=== PATIENT | male | born 1950 | race Caucasian/White ===

== ENCOUNTER 2020-04-04 10:42 | Outpatient (REF) | payer MEDICARE, OTHER, SELFPAY ==
[2020-04-04 11:47] LABS: MANUAL DIFF FLAG NO
[2020-04-04 12:06] LABS: Basophils Absolute Auto 0.1 X10*3/uL (0.0-0.2); Basophils Percent Auto 0.8 % (0-2); Eosinophils Absolute Auto 0.2 X10*3/uL (0.0-0.4); Eosinophils Percent Auto 1.7 % (0-4); Hematocrit 41.8 % (42-52); Hemoglobin 13.3 g/dl (14.0-18.0); Imm Gran Abs Auto 0.02 X10*3/uL (0.00-0.03); Imm Gran Pct Auto 0.2 % (0.0-0.4); Lymphocytes Absolute Auto 2.1 X10*3/uL (1.2-4.9); Mean Corpuscular HGB Conc 31.8 g/dl (31.0-36.0); Mean Corpuscular Hemoglobin 28.4 pg (27.0-33.0); Mean Corpuscular Volume 89.3 fL (80-98); Mean Platelet Volume 10.6 fL (9.4-12.4); Monocytes Absolute Auto 0.8 X10*3/uL (0.1-1.2); Monocytes Percent Auto 9.5 % (2-11); Neutrophils Absolute Auto 5.5 X10*3/uL (2.0-8.3); Neutrophils Percent Auto 63.8 % (45-73); Platelet Count 316 X10*3/uL (160-400); Red Blood Count 4.68 X10*6/uL (4.60-5.80); Red Cell Distribution Width 14.1 % (11.0-16.0); White Blood Count 8.7 X10*3/uL (4.8-10.8)
[2020-04-04 12:20] LABS: Glucose Urine UA NEG (NEG); Leukocyte Esterase Urine NEG (NEG); Nitrite Urine NEG (NEG); PH 5.5 (5.0-8.0); Urine Blood NEG (NEG); Urine Ketones NEG (NEG); Urine Protein NEG (NEG-TRACE)
[2020-04-04 12:23] LABS: Appearance Urine CLEAR; Color Urine YELLOW
[2020-04-04 12:49] LABS: Alanine Aminotransferase 27 U/L (0-40); Albumin Level 4.2 g/dL (3.5-5.0); Alkaline Phosphatase 100 U/L (39-117); Anion Gap 18 (12-20); Aspartate Amino Transferase 37 U/L (5-37); Bilirubin Total 0.6 mg/dL (0.0-1.0); Blood Urea Nitrogen 21 mg/dL (9-16); Calcium 9.3 mg/dL (8.4-10.2); Carbon Dioxide 24 mmol/L (22-29); Chloride 105 mmol/L (96-108); Cholesterol 176 mg/dL; Estimated Glomerular Filt Rate 38; Glucose Fasting 123 mg/dL (60-99); HDL Cholesterol 49 mg/dL; LDL Cholesterol Calculated 103 mg/dl; Potassium 4.5 mmol/L (3.3-5.1); Sodium 142 mmol/L (135-145); Total Protein 7.2 g/dL (6.5-8.0); Triglycerides 123 mg/dL
[2020-04-04 13:14] LABS: Prostate Specific Antigen Scr 0.92 ng/mL (<0.05-4.0)
[2020-04-04 15:06] LABS: Reflex LDLD? No
== END 2020-04-04 10:43 | disposition home or self-care (01) ==
LOC: HO.LNP 10:42
PROVIDERS: Visit Provider Internal Medicine
DX: Z00.00 Encounter for general adult medical examination without abnormal findings (principal); R97.20 Elevated prostate specific antigen [PSA]; E78.00 Pure hypercholesterolemia, unspecified; I50.20 Unspecified systolic (congestive) heart failure; Z12.5 Encounter for screening for malignant neoplasm of prostate
CPT/HCPCS: 80053; 80061; 81003; 84153; 85025

== ENCOUNTER 2020-07-13 10:48 | Outpatient (REF) | payer MEDICARE, OTHER, SELFPAY ==
[2020-07-13 12:57] LABS: Blood Urea Nitrogen 21 mg/dL (9-16); Estimated Glomerular Filt Rate 42
== END 2020-07-13 10:49 | disposition home or self-care (01) ==
LOC: HO.LNP 10:48
PROVIDERS: Visit Provider Internal Medicine
DX: R79.9 Abnormal finding of blood chemistry, unspecified (principal)
CPT/HCPCS: 82565; 84520

== ENCOUNTER 2020-10-03 10:18 | Outpatient (REF) | payer MEDICARE, OTHER, SELFPAY ==
[2020-10-03 10:21] LABS: MANUAL DIFF FLAG NO
[2020-10-03 10:47] LABS: Basophils Absolute Auto 0.1 X10*3/uL (0.0-0.2); Eosinophils Absolute Auto 0.2 X10*3/uL (0.0-0.4); Eosinophils Percent Auto 2.2 % (0-4); Hematocrit 39.8 % (42-52); Hemoglobin 13.1 g/dl (14.0-18.0); Imm Gran Abs Auto 0.02 X10*3/uL (0.00-0.03); Imm Gran Pct Auto 0.3 % (0.0-0.4); Lymphocytes Absolute Auto 1.5 X10*3/uL (1.2-4.9); Lymphocytes Percent Auto 19.2 % (20-40); Mean Corpuscular HGB Conc 32.9 g/dl (31.0-36.0); Mean Corpuscular Hemoglobin 28.9 pg (27.0-33.0); Mean Corpuscular Volume 87.7 fL (80-98); Mean Platelet Volume 10.9 fL (9.4-12.4); Monocytes Absolute Auto 0.8 X10*3/uL (0.1-1.2); Monocytes Percent Auto 10.7 % (2-11); Neutrophils Absolute Auto 5.2 X10*3/uL (2.0-8.3); Neutrophils Percent Auto 66.6 % (45-73); Platelet Count 257 X10*3/uL (160-400); Red Blood Count 4.54 X10*6/uL (4.60-5.80); Red Cell Distribution Width 13.7 % (11.0-16.0); White Blood Count 7.8 X10*3/uL (4.8-10.8)
[2020-10-03 10:57] LABS: Glucose Urine UA NEG (NEG); Leukocyte Esterase Urine NEG (NEG); Nitrite Urine NEG (NEG); PH 5.5 (5.0-8.0); Urine Blood NEG (NEG); Urine Ketones NEG (NEG); Urine Protein NEG (NEG-TRACE)
[2020-10-03 11:03] LABS: Appearance Urine CLEAR; Color Urine STRAW
[2020-10-03 11:46] LABS: Alanine Aminotransferase 23 U/L (0-40); Albumin Level 4.1 g/dL (3.5-5.0); Alkaline Phosphatase 91 U/L (39-117); Anion Gap 16 (12-20); Aspartate Amino Transferase 38 U/L (5-37); Bilirubin Total 0.6 mg/dL (0.0-1.0); Blood Urea Nitrogen 23 mg/dL (9-16); Calcium 9.5 mg/dL (8.4-10.2); Carbon Dioxide 25 mmol/L (22-29); Chloride 104 mmol/L (96-108); Cholesterol 172 mg/dL; Estimated Glomerular Filt Rate 42; Glucose Fasting 109 mg/dL (60-99); HDL Cholesterol 52 mg/dL; LDL Cholesterol Calculated 101 mg/dl; Potassium 4.4 mmol/L (3.3-5.1); Sodium 141 mmol/L (135-145); Triglycerides 95 mg/dL
[2020-10-03 12:07] LABS: PSA,Total (Free>4and<10) 1.79 ng/mL (0.00-4.00)
[2020-10-03 13:12] LABS: Reflex LDLD? No
== END 2020-10-03 10:19 | disposition home or self-care (01) ==
LOC: HO.LNP 10:18
PROVIDERS: Visit Provider Internal Medicine
DX: Z00.00 Encounter for general adult medical examination without abnormal findings (principal); Z12.5 Encounter for screening for malignant neoplasm of prostate; R79.9 Abnormal finding of blood chemistry, unspecified; E78.00 Pure hypercholesterolemia, unspecified; R97.20 Elevated prostate specific antigen [PSA]
CPT/HCPCS: 80053; 80061; 81003; 84153; 85025

== ENCOUNTER 2021-01-08 10:16 | Outpatient (REF) | payer MEDICARE, OTHER, SELFPAY ==
[2021-01-08 10:55] LABS: Blood Urea Nitrogen 22 mg/dL (9-16); Estimated Glomerular Filt Rate 42
== END 2021-01-08 10:17 | disposition home or self-care (01) ==
LOC: HO.LNP 10:16
PROVIDERS: PCP Internal Medicine; Visit Provider Internal Medicine
DX: R79.9 Abnormal finding of blood chemistry, unspecified (principal)
CPT/HCPCS: 82565; 84520

== ENCOUNTER 2021-04-03 10:14 | Outpatient (REF) | payer MEDICARE, OTHER, SELFPAY ==
[2021-04-03 11:05] LABS: Alanine Aminotransferase 13 U/L (0-40); Albumin Level 3.9 g/dL (3.5-5.0); Alkaline Phosphatase 109 U/L (39-117); Aspartate Amino Transferase 29 U/L (5-37); Bilirubin Direct 0.3 mg/dL (0.0-0.5); Bilirubin Total 0.7 mg/dL (0.0-1.0); Cholesterol 176 mg/dL; HDL Cholesterol 48 mg/dL; LDL Cholesterol Calculated 106 mg/dl; Triglycerides 113 mg/dL
[2021-04-03 11:08] LABS: Reflex LDLD? No
== END 2021-04-03 10:15 | disposition home or self-care (01) ==
LOC: HO.LNP 10:14
PROVIDERS: PCP Internal Medicine; Visit Provider Internal Medicine
DX: E78.00 Pure hypercholesterolemia, unspecified (principal)
CPT/HCPCS: 80061; 80076

== ENCOUNTER 2021-10-05 10:37 | Outpatient (REF) | payer MEDICARE, OTHER, SELFPAY ==
[2021-10-05 10:43] LABS: MANUAL DIFF FLAG NO
[2021-10-05 11:15] LABS: Basophils Absolute Auto 0.1 X10*3/uL (0.0-0.2); Basophils Percent Auto 0.8 % (0-2); Eosinophils Absolute Auto 0.1 X10*3/uL (0.0-0.4); Eosinophils Percent Auto 1.9 % (0-4); Hematocrit 37.8 % (42.0-52.0); Hemoglobin 12.6 g/dl (14.0-18.0); Imm Gran Abs Auto 0.02 X10*3/uL (0.00-0.03); Imm Gran Pct Auto 0.3 % (0.0-0.4); Lymphocytes Absolute Auto 1.5 X10*3/uL (1.2-4.9); Lymphocytes Percent Auto 20.2 % (20-40); Mean Corpuscular HGB Conc 33.3 g/dl (31.0-36.0); Mean Corpuscular Hemoglobin 28.8 pg (27.0-33.0); Mean Corpuscular Volume 86.3 fL (80.0-98.0); Mean Platelet Volume 10.9 fL (9.4-12.4); Monocytes Absolute Auto 0.9 X10*3/uL (0.1-1.2); Monocytes Percent Auto 11.8 % (2-11); Neutrophils Absolute Auto 4.9 x10*3/uL (2.0-8.3); Platelet Count 245 X10*3/uL (160-400); Red Blood Count 4.38 X10*6/uL (4.60-5.80); Red Cell Distribution Width 14.3 % (11.0-16.0); White Blood Count 7.5 X10*3/uL (4.8-10.8)
[2021-10-05 12:06] LABS: Alanine Aminotransferase 15 U/L (0-40); Albumin Level 3.9 g/dL (3.5-5.0); Alkaline Phosphatase 95 U/L (39-117); Anion Gap 18 (12-20); Aspartate Amino Transferase 33 U/L (5-37); Bilirubin Total 0.4 mg/dL (0.0-1.0); Blood Urea Nitrogen 16 mg/dL (9-16); Calcium 9.1 mg/dL (8.4-10.2); Carbon Dioxide 24 mmol/L (22-29); Chloride 105 mmol/L (96-108); Cholesterol 181 mg/dL; Estimated Glomerular Filt Rate 43; Glucose Fasting 111 mg/dL (60-99); HDL Cholesterol 48 mg/dL; LDL Cholesterol Calculated 95 mg/dl; Potassium 4.3 mmol/L (3.3-5.1); Sodium 143 mmol/L (135-145); Total Protein 6.9 g/dL (6.5-8.0); Triglycerides 192 mg/dL
[2021-10-05 12:15] LABS: PSA,Total (Free>4and<10) 0.51 ng/mL (0.00-4.00)
== END 2021-10-05 10:38 | disposition home or self-care (01) ==
LOC: HO.LNP 10:37
PROVIDERS: Visit Provider Internal Medicine
DX: Z00.00 Encounter for general adult medical examination without abnormal findings (principal); Z12.5 Encounter for screening for malignant neoplasm of prostate; I50.20 Unspecified systolic (congestive) heart failure; E78.00 Pure hypercholesterolemia, unspecified; R97.20 Elevated prostate specific antigen [PSA]
CPT/HCPCS: 80053; 80061; 84153; 85025

== ENCOUNTER 2022-04-08 11:17 | Outpatient (REF) | payer MEDICARE, OTHER, SELFPAY ==
[2022-04-08 11:55] LABS: Alanine Aminotransferase 11 U/L (0-40); Albumin Level 3.8 g/dL (3.5-5.0); Alkaline Phosphatase 95 U/L (39-117); Aspartate Amino Transferase 29 U/L (5-37); Bilirubin Direct 0.2 mg/dL (0.0-0.5); Bilirubin Total 0.7 mg/dL (0.0-1.0); Cholesterol 176 mg/dL; HDL Cholesterol 45 mg/dL; LDL Cholesterol Calculated 110 mg/dl; Total Protein 6.7 g/dL (6.5-8.0); Triglycerides 109 mg/dL
[2022-04-08 13:53] LABS: Reflex LDLD? No
== END 2022-04-08 11:18 | disposition home or self-care (01) ==
LOC: HO.LNP 11:17
PROVIDERS: Visit Provider Internal Medicine
DX: E78.00 Pure hypercholesterolemia, unspecified (principal)
CPT/HCPCS: 80061; 80076

== ENCOUNTER 2022-10-15 12:30 | Outpatient (REF) | payer MEDICARE, OTHER, SELFPAY ==
[2022-10-15 12:37] LABS: MANUAL DIFF FLAG NO
[2022-10-15 12:55] LABS: Basophils Absolute Auto 0.1 X10*3/uL (0.0-0.2); Basophils Percent Auto 1.1 % (0-2); Eosinophils Absolute Auto 0.2 X10*3/uL (0.0-0.4); Hematocrit 39.6 % (42.0-52.0); Imm Gran Abs Auto 0.02 X10*3/uL (0.00-0.03); Imm Gran Pct Auto 0.3 % (0.0-0.4); Lymphocytes Absolute Auto 1.5 X10*3/uL (1.2-4.9); Lymphocytes Percent Auto 20.1 % (20-40); Mean Corpuscular HGB Conc 32.8 g/dl (31.0-36.0); Mean Corpuscular Hemoglobin 28.3 pg (27.0-33.0); Mean Corpuscular Volume 86.1 fL (80.0-98.0); Mean Platelet Volume 10.9 fL (9.4-12.4); Monocytes Absolute Auto 0.8 X10*3/uL (0.1-1.2); Monocytes Percent Auto 10.5 % (2-11); Neutrophils Absolute Auto 4.9 x10*3/uL (2.0-8.3); Platelet Count 251 X10*3/uL (160-400); Red Cell Distribution Width 14.3 % (11.0-16.0); White Blood Count 7.4 X10*3/uL (4.8-10.8)
[2022-10-15 13:17] LABS: Appearance Urine Clear; Color Urine Yellow; Glucose Urine UA Negative (Negative); Leukocyte Esterase Urine Negative (Negative); Nitrite Urine Negative (Negative); PH 5.5 (5.0-9.0); Urine Blood Negative (Negative); Urine Ketones Negative (Negative); Urine Protein Negative (Neg-Trace)
[2022-10-15 13:19] LABS: Alanine Aminotransferase 13 U/L (0-40); Albumin Level 3.9 g/dL (3.5-5.0); Alkaline Phosphatase 81 U/L (39-117); Anion Gap 12 (12-20); Aspartate Amino Transferase 29 U/L (5-37); Bilirubin Total 0.6 mg/dL (0.0-1.0); Blood Urea Nitrogen 14 mg/dL (9-16); Calcium 9.6 mg/dL (8.4-10.2); Carbon Dioxide 28 mmol/L (22-29); Chloride 105 mmol/L (96-108); Cholesterol 168 mg/dL (<200); Estimated Glomerular Filt Rate 49; Glucose Fasting 102 mg/dL (60-99); HDL Cholesterol 45 mg/dL (>40); LDL Cholesterol Calculated 102 mg/dL (<100); Potassium 4.2 mmol/L (3.3-5.1); Sodium 141 mmol/L (135-145); Triglycerides 109 mg/dL (<150)
[2022-10-15 13:20] LABS: Bacteria Urine None Seen (None Seen); Hyaline Casts Urine >20 /LPF (0-2); RBC Urine 0-2 /HPF (0-2); Squamous Epithelial Cell Urine 0-2 /HPF (0-2); WBC Urine 0-5 /HPF (0-5)
[2022-10-15 15:25] LABS: PSA,Total (Free>4and<10) 0.45 ng/mL (0.00-4.00)
== END 2022-10-15 12:31 | disposition home or self-care (01) ==
LOC: HO.LNP 12:30
PROVIDERS: Visit Provider Internal Medicine
DX: Z00.00 Encounter for general adult medical examination without abnormal findings (principal); I50.20 Unspecified systolic (congestive) heart failure; E78.00 Pure hypercholesterolemia, unspecified; R97.20 Elevated prostate specific antigen [PSA]; Z12.5 Encounter for screening for malignant neoplasm of prostate
CPT/HCPCS: 80053; 80061; 81001; 84153; 85025

== ENCOUNTER 2023-04-11 14:25 | Outpatient (REF) | payer MEDICARE, SELFPAY ==
[2023-04-11 14:49] LABS: Alanine Aminotransferase 15 U/L (0-40); Albumin Level 4.3 g/dL (3.5-5.0); Alkaline Phosphatase 117 U/L (39-117); Aspartate Amino Transferase 32 U/L (5-37); Bilirubin Direct 0.3 mg/dL (0.0-0.5); Bilirubin Total 0.8 mg/dL (0.0-1.0); Cholesterol 163 mg/dL (<200); HDL Cholesterol 50 mg/dL (>40); LDL Cholesterol Calculated 90 mg/dL (<100); Total Protein 8.2 g/dL (6.5-8.0); Triglycerides 116 mg/dL (<150)
[2023-04-11 16:03] LABS: Reflex LDLD? No
== END 2023-04-11 14:26 | disposition home or self-care (01) ==
LOC: HO.10HDLNP 14:25
PROVIDERS: Visit Provider Internal Medicine
DX: Q25.3 Supravalvular aortic stenosis (principal); I50.20 Unspecified systolic (congestive) heart failure; E78.00 Pure hypercholesterolemia, unspecified
CPT/HCPCS: 80061; 80076

== ENCOUNTER 2023-04-25 12:24 | Outpatient (REF) | payer MEDICARE, SELFPAY ==
[2023-04-25 12:33] LABS: Basophils Absolute Auto 0.1 X10*3/uL (0.0-0.2); Basophils Percent Auto 0.4 % (0-2); Eosinophils Percent Auto 0.2 % (0-4); Hematocrit 41.2 % (42.0-52.0); Hemoglobin 13.5 g/dl (14.0-18.0); Imm Gran Abs Auto 0.05 X10*3/uL (0.00-0.03); Imm Gran Pct Auto 0.4 % (0.0-0.4); Lymphocytes Absolute Auto 0.9 X10*3/uL (1.2-4.9); Lymphocytes Percent Auto 7.3 % (20-40); MANUAL DIFF FLAG SCAN; Mean Corpuscular HGB Conc 32.8 g/dl (31.0-36.0); Mean Corpuscular Hemoglobin 27.2 pg (27.0-33.0); Mean Corpuscular Volume 82.9 fL (80.0-98.0); Mean Platelet Volume 9.8 fL (9.4-12.4); Monocytes Absolute Auto 1.7 X10*3/uL (0.1-1.2); Monocytes Percent Auto 13.8 % (2-11); Neutrophils Absolute Auto 9.6 x10*3/uL (2.0-8.3); Neutrophils Percent Auto 77.9 % (45-73); Platelet Count 342 X10*3/uL (160-400); Red Blood Count 4.97 X10*6/uL (4.60-5.80); Red Cell Distribution Width 15.1 % (11.0-16.0); SCAN SMEAR FLAG 1; White Blood Count 12.3 X10*3/uL (4.8-10.8)
[2023-04-25 12:47] LABS: Alanine Aminotransferase 11 U/L (0-40); Albumin Level 3.7 g/dL (3.5-5.0); Alkaline Phosphatase 99 U/L (39-117); Anion Gap 16 (12-20); Aspartate Amino Transferase 24 U/L (5-37); Bilirubin Total 0.5 mg/dL (0.0-1.0); Blood Urea Nitrogen 21 mg/dL (9-16); Carbon Dioxide 21 mmol/L (22-29); Chloride 101 mmol/L (96-108); Cholesterol 129 mg/dL (<200); Estimated Glomerular Filt Rate 44; Glucose Fasting 110 mg/dL (60-99); HDL Cholesterol 50 mg/dL (>40); LDL Cholesterol Calculated 65 mg/dL (<100); Potassium 4.2 mmol/L (3.3-5.1); Sodium 134 mmol/L (135-145); Total Protein 7.8 g/dL (6.5-8.0); Triglycerides 70 mg/dL (<150)
[2023-04-25 12:53] LABS: SLIDE REVIEW VERIFIED
[2023-04-25 14:04] LABS: Reflex LDLD? No
== END 2023-04-25 12:25 | disposition home or self-care (01) ==
LOC: HO.LNP 12:24
PROVIDERS: Visit Provider Internal Medicine
DX: I50.20 Unspecified systolic (congestive) heart failure (principal); E78.00 Pure hypercholesterolemia, unspecified; Q25.3 Supravalvular aortic stenosis
CPT/HCPCS: 80053; 80061; 85025

== ENCOUNTER 2023-05-20 08:28 | Outpatient (REF) | payer MEDICARE, SELFPAY ==
[2023-05-20 09:38] LABS: B Type Natriuretic Peptide 517 pg/mL (<100)
== END 2023-05-20 08:29 | disposition home or self-care (01) ==
LOC: HO.LAB 08:28
PROVIDERS: PCP Internal Medicine; Visit Provider Nurse Practitioner Acute Care
DX: I50.9 Heart failure, unspecified (principal)
CPT/HCPCS: 36415; 83880

== ENCOUNTER 2023-06-26 11:02 | Outpatient (REF) | payer MEDICARE, SELFPAY ==
[2023-06-26 11:06] LABS: MANUAL DIFF FLAG NO
[2023-06-26 11:14] LABS: Basophils Absolute Auto 0.1 X10*3/uL (0.0-0.2); Basophils Percent Auto 1.3 % (0-2); Eosinophils Absolute Auto 0.3 X10*3/uL (0.0-0.4); Eosinophils Percent Auto 4.4 % (0-4); Hematocrit 41.2 % (42.0-52.0); Hemoglobin 12.8 g/dl (14.0-18.0); Imm Gran Abs Auto 0.03 X10*3/uL (0.00-0.03); Imm Gran Pct Auto 0.4 % (0.0-0.4); Lymphocytes Absolute Auto 1.4 X10*3/uL (1.2-4.9); Mean Corpuscular HGB Conc 31.1 g/dl (31.0-36.0); Mean Corpuscular Hemoglobin 26.3 pg (27.0-33.0); Mean Corpuscular Volume 84.8 fL (80.0-98.0); Mean Platelet Volume 10.5 fL (9.4-12.4); Monocytes Absolute Auto 0.8 X10*3/uL (0.1-1.2); Monocytes Percent Auto 11.3 % (2-11); Neutrophils Absolute Auto 4.5 x10*3/uL (2.0-8.3); Neutrophils Percent Auto 62.6 % (45-73); Platelet Count 226 X10*3/uL (160-400); Red Blood Count 4.86 X10*6/uL (4.60-5.80); Red Cell Distribution Width 17.9 % (11.0-16.0); White Blood Count 7.1 X10*3/uL (4.8-10.8)
== END 2023-06-26 11:03 | disposition home or self-care (01) ==
LOC: HO.LNP 11:02
PROVIDERS: Visit Provider Internal Medicine
DX: D72.821 Monocytosis (symptomatic) (principal)
CPT/HCPCS: 85025

== ENCOUNTER 2023-10-02 08:21 | Outpatient (REF) | payer MEDICARE, SELFPAY ==
[2023-10-02 09:21] LABS: Anion Gap 12 (12-20); Blood Urea Nitrogen 15 mg/dL (9-16); Calcium 9.4 mg/dL (8.4-10.2); Carbon Dioxide 28 mmol/L (22-29); Chloride 107 mmol/L (96-108); Estimated Glomerular Filt Rate 45; Glucose Random 86 mg/dL (60-115); Potassium 4.4 mmol/L (3.3-5.1); Sodium 143 mmol/L (135-145)
[2023-10-02 09:38] LABS: TSH reflex Free T4 0.33 uIU/mL (0.32-4.0)
== END 2023-10-02 08:22 | disposition home or self-care (01) ==
LOC: HO.LAB 08:21
PROVIDERS: PCP Internal Medicine; Visit Provider Internal Medicine
DX: I15.9 Secondary hypertension, unspecified (principal)
CPT/HCPCS: 36415; 80048; 84443

== ENCOUNTER 2023-10-24 10:55 | Outpatient (REF) | payer MEDICARE, SELFPAY ==
[2023-10-24 10:58] LABS: MANUAL DIFF FLAG NO
[2023-10-24 11:12] LABS: Appearance Urine Clear; Color Urine Yellow; Glucose Urine UA >=1000 mg/dL (Negative); Leukocyte Esterase Urine Negative (Negative); Nitrite Urine Negative (Negative); PH 5.5 (5.0-9.0); Specific Gravity - Urine 1.015 (1.005-1.025); UMIC TRIGGER UACC YES; Urine Blood Negative (Negative); Urine Ketones Negative (Negative); Urine Protein Negative (Neg-Trace)
[2023-10-24 11:19] LABS: Bacteria Urine None Seen (None Seen); Hyaline Casts Urine 0-2 /LPF (0-2); RBC Urine 0-2 /HPF (0-2); Squamous Epithelial Cell Urine 0-2 /HPF (0-2); WBC Urine 0-5 /HPF (0-5)
[2023-10-24 11:36] LABS: Basophils Absolute Auto 0.1 X10*3/uL (0.0-0.2); Basophils Percent Auto 1.1 % (0-2); Eosinophils Absolute Auto 0.1 X10*3/uL (0.0-0.4); Hematocrit 42.3 % (42.0-52.0); Hemoglobin 13.7 g/dl (14.0-18.0); Imm Gran Abs Auto 0.01 X10*3/uL (0.00-0.03); Imm Gran Pct Auto 0.2 % (0.0-0.4); Lymphocytes Absolute Auto 1.3 X10*3/uL (1.2-4.9); Mean Corpuscular HGB Conc 32.4 g/dl (31.0-36.0); Mean Corpuscular Hemoglobin 28.1 pg (27.0-33.0); Mean Corpuscular Volume 86.9 fL (80.0-98.0); Mean Platelet Volume 10.5 fL (9.4-12.4); Monocytes Absolute Auto 0.6 X10*3/uL (0.1-1.2); Neutrophils Absolute Auto 3.3 x10*3/uL (2.0-8.3); Neutrophils Percent Auto 61.7 % (45-73); Platelet Count 193 X10*3/uL (160-400); Red Blood Count 4.87 X10*6/uL (4.60-5.80); Red Cell Distribution Width 15.9 % (11.0-16.0); White Blood Count 5.4 X10*3/uL (4.8-10.8)
[2023-10-24 11:46] LABS: Alanine Aminotransferase 9 U/L (0-40); Albumin Level 3.9 g/dL (3.5-5.0); Alkaline Phosphatase 75 U/L (39-117); Anion Gap 13 (12-20); Aspartate Amino Transferase 24 U/L (5-37); Bilirubin Total 0.5 mg/dL (0.0-1.0); Blood Urea Nitrogen 18 mg/dL (9-16); Calcium 9.3 mg/dL (8.4-10.2); Carbon Dioxide 26 mmol/L (22-29); Chloride 107 mmol/L (96-108); Cholesterol 166 mg/dL (<200); Estimated Glomerular Filt Rate 41; Glucose Fasting 88 mg/dL (60-99); HDL Cholesterol 60 mg/dL (>40); LDL Cholesterol Calculated 93 mg/dL (<100); Potassium 4.6 mmol/L (3.3-5.1); Sodium 141 mmol/L (135-145); Total Protein 6.7 g/dL (6.5-8.0); Triglycerides 65 mg/dL (<150)
[2023-10-24 11:51] LABS: PSA,Total (Free>4and<10) 0.21 ng/mL (0.00-4.00)
== END 2023-10-24 10:56 | disposition home or self-care (01) ==
LOC: HO.LNP 10:55
PROVIDERS: Visit Provider Internal Medicine
DX: Z00.00 Encounter for general adult medical examination without abnormal findings (principal); I50.20 Unspecified systolic (congestive) heart failure; R97.20 Elevated prostate specific antigen [PSA]; D72.821 Monocytosis (symptomatic); E78.00 Pure hypercholesterolemia, unspecified; Z12.5 Encounter for screening for malignant neoplasm of prostate
CPT/HCPCS: 80053; 80061; 81001; 84153; 85025

== ENCOUNTER 2023-11-10 08:20 | Outpatient (REF) | payer MEDICARE, SELFPAY ==
[2023-11-10 09:51] LABS: B Type Natriuretic Peptide 751 pg/mL (<100)
[2023-11-10 09:53] LABS: Anion Gap 12 (12-20); Blood Urea Nitrogen 13 mg/dL (9-16); Calcium 9.8 mg/dL (8.4-10.2); Carbon Dioxide 27 mmol/L (22-29); Chloride 109 mmol/L (96-108); Estimated Glomerular Filt Rate 39; Glucose Random 108 mg/dL (60-115); Potassium 4.6 mmol/L (3.3-5.1); Sodium 143 mmol/L (135-145)
[2023-11-10 10:12] LABS: TSH reflex Free T4 0.32 uIU/mL (0.32-4.0)
== END 2023-11-10 08:21 | disposition home or self-care (01) ==
LOC: HO.LAB 08:20
PROVIDERS: PCP Internal Medicine; Visit Provider Internal Medicine
DX: I51.9 Heart disease, unspecified (principal)
CPT/HCPCS: 36415; 80048; 83880; 84443

== ENCOUNTER 2023-12-05 08:20 | Outpatient (REF) | payer MEDICARE, SELFPAY ==
[2023-12-05 09:37] LABS: Free T4 (Free Thyroxine) 1.21 ng/dL (0.71-1.85)
== END 2023-12-05 08:21 | disposition home or self-care (01) ==
LOC: HO.LAB 08:20
PROVIDERS: PCP Internal Medicine; Visit Provider Nurse Practitioner Acute Care
DX: I50.9 Heart failure, unspecified (principal)
CPT/HCPCS: 36415; 84439

== ENCOUNTER 2024-04-23 10:47 | Outpatient (REF) | payer MEDICARE, SELFPAY ==
[2024-04-23 11:35] LABS: Alanine Aminotransferase 12 U/L (0-40); Albumin Level 3.9 g/dL (3.5-5.0); Alkaline Phosphatase 88 U/L (39-117); Aspartate Amino Transferase 32 U/L (5-37); Bilirubin Direct 0.2 mg/dL (0.0-0.5); Bilirubin Total 0.6 mg/dL (0.0-1.0); Cholesterol 155 mg/dL (<200); HDL Cholesterol 62 mg/dL (>40); LDL Cholesterol Calculated 78 mg/dL (<100); Total Protein 7.3 g/dL (6.5-8.0); Triglycerides 79 mg/dL (<150)
[2024-04-23 11:44] LABS: Reflex LDLD? No
--- OUTSIDE RECORDS SUMMARY | 2024-04-23 12:23 | XMS_ITS ---
Author Organization Deandre Bowden MD Address [address] [place] [phone] Care Team Providers Care [employer] Driver Name Role Phone Deandre Bowden Primary Care Provider [phone] Allergies No Known Allergies REASON FOR VISIT [...] Problem Status W/U Status Risk Notes Problem [id number] Permanent atrial fibrillation (I48.21) Active confirmed Vital Signs Blood pressure systolic 112 mm Hg 10/31/19 Blood pressure diastolic 64 mm Hg 024 Height 68 in 10/31/2023 Weight 198 lbs 10/31/2023 BMI 30.10 kg/m2 10/31/2023 weight is up 7 pounds since 08-07-23 Encounters Encounter Location Date Provider Diagnosis Deandre Bowden MD [address] [facility] [address] [place], [place] [phone] 10/31/2023 Deandre Bowden History of pacemaker Z95.0 [...] Follow Up: 6 Months, Reason: Provider Name:Deandre dumas, 04/30/2024 10:45:00 AM, [address] [facility], [address] [facility], [place], [place], [phone], Provider Name:Deandre camposr, 10/26/2024 07:30:00 AM, [address] [place] [address], [place] [address], [place], [place], [phone], Provider Name:Deandre Chu ier, 11/02/2024 10:30:00 AM, [address] [place] [address], [place] [address], [place], [place], [phone], Progress Notes * Dante MONTANEZ KDOB:[birth year] (73 yo M)Acc No.[id number]:10/31/2023 Progress Notes Patient:?Dante Montanez Provider:?Deandre Bowden MD :1950???Age:73 Y???Sex:Male Que e:10/31/2023 Address:[address] [place] [id number] Subjective: * Chief Complaints: * ???ANNUAL EXAM * HPI: ???Depression Screening:?PHQ-9?Little interest or pleasure in doing things?Not at all,?Feeling down, depressed, or hopeless?Not at all,?Trouble falling or staying asleep, or sleeping too much?Not at all,?Feeling tired or having little energy?Not at all,?Poor appetite or overeating?Not at all,?Feeling bad about yourself or that you are a failure, or have let yourself or your family down?Not at all,?Trouble concentrating on things, such as reading the newspaper or watching television?Not at all,?Moving or speaking so slowly that other people could have noticed; or the opposite, being so fidgety or restless that you have been moving around a lot more than usual?Not at all,?Thoughts that you would be better off or of hurting yourself in some way?Not at all,?Total Score?0.?Interpretation and Intervention?Depression Screening Findings?Negative,?Follow-Up for Depression?: review of PHQ-9 found negative result, no follow-up needed.?Communication Needs:?Communication Needs?Does the patient have a hearing impairment?No,?Does the patient have a vision impairment??Yes,?If yes, what is the vision impairment??Glasses,?Does the patient have a cognition impairment??No.?Fall Risk:?History?Have you had any falls with injury in the past year??No,?Have you had two or more falls in the past year??No.?SDOH Questions:?SDOH Questions?In the past year have you been worried about losing housing??No,?In the past year have you or any family members you live with been unable to get any of the following when it was really needed? Check all that apply:?None.?Symptom(s):? patient is a 73 yo male here for annual visit with review of recent labs and follow up of chronic issues. * ROS:?General/Constitutional:?Patient denies?fatigue , headache.?Change in appetite?denies.?Chills?denies.?Fever?denies.?Ophthalmologic:?Blurred vision?denies.?Discharge?denies.?Pain?denies.?ENT:?Patient denies?decreased sense of smell , any loss of taste , sore throat.?Decreased hearing?denies.?Sore throat?denies.?Swollen glands?denies.?Endocrine:?Cold intolerance?denies.?Excessive thirst?denies.?Heat intolerance?denies.?Weight loss?denies.?Respiratory:?Cough?denies.?Shortness of breath at rest?denies.?Shortness of breath with exertion?denies.?Wheezing?denies.?Cardiovascular:?Chest pain at rest?denies.?Chest pain with exertion?denies.?Irregular heartbeat?denies.?Shortness of breath?denies.?Gastrointestinal:?Abdominal pain?denies.?Change in bowel habits?denies.?Diarrhea?denies.?Nausea?denies.?Rectal bleeding?denies.?Vomiting?denies .?Genitourinary:?Blood in urine?denies.?Difficulty urinating?denies.?Frequent urination?denies.?Musculoskeletal:?Patient denies?muscle aches.?Painful joints?denies.?Weakness?denies.?Peripheral Vascular:?Patient denies?red and blue toes.?Skin:?Dry skin?denies.?Itching?denies.?Denies?Mole(s),? changes in moles, new moles or any lesions of concern.?Denies?Photosensitivity.?Rash?denies.?Neurologic:?Dizziness?denies.?Fainting?denies.?Headache?denies.? * Medical History:? * Surgical History:? * Hospitalization/Major Diagno stic Procedure:? * Family History:?Father: dece ased 76 yrs.?Mother: 56 yrs, diagnosed with Cancer.?1 sister(s) - healthy. .? father, pneumonia mother, [place], No pertinent family medical history, Denies mental health/substance abuse family history, Denies mental health/substance abuse family history, Denies mental health/substance abuse family history, Denies mental health/substance abuse family history. * Social History:?Tobacco Use:?Tobacco Use/Smoking?How long has it been since you last smoked??> 10 years,?Additional Findings: Tobacco Non-User?Former smoker, currently using no form of tobacco.?Drugs/Alcohol:?Alcohol Screen?Did you have a drink containing alcohol in the past year??No,?Points?0,?Interpretation?Negative.?Miscellaneous:?Caffeine: yes, frequency:, 1 cup per day. no Children. Community involvements: yes, goes to [employer] not during Covid. Exercise: yes, walking daily 1 mile daily. Housing: renting. Living with: alone. Marital status: single. Occupation: retired. no Sexual abuse. no Travel outside of the [place]. * Medications:?TakingMetoprolo l Succinate ER 100 MG Tablet Extended Release [...] reviewed and reconciled with the patient * Allergies:?N.K.D.A.yes[Aller gies Verified] Objective: * Vitals:?Ht: 68, Wt:198, BMI: 30.10, BP:112/64 weight is up 7 pounds since 08-07-23. * ???Past Orders: ???Lab:Complete Blood Count Auto Diff (Order Date - 10/24/2023) (Collection Date - 10/24/2023) ? Value Reference Range ?White Blood Count 5.4 4. 8-10.8 - X10*3/uL ?Red Blood Count 4.87 4.60 -5.80 - X10*6/uL ?Hemoglobin 13.7 L 14.0-18.0 - g/dl ?Hematocrit 42.3 42.0-52.0 - % ?Mean Corpuscular Volume 86.9 80.0-98.0 - fL ?Mean Corpuscular Hemoglobin 28.1 27.0-33.0 - pg ?Mean Corpuscular HGB Conc 32.4 31.0-36.0 - g/dl ?Red Cell Distribution Width 15.9 11.0-16.0 - % ?Platelet Count 193 160-4 00 - X10*3/uL ?Mean Platelet Volume 10.5 9.4-12.4 - fL ?Neutrophils Percent Auto 61.7 45-73 - % ?Imm Gran Pct Auto 0.2 0. 0-0.4 - % ?Lymphocytes Percent Auto 24.0 20-40 - % ?Monocytes Percent Auto 11.0 2-11 - % ?Eosinophils Percent Auto 2.0 0-4 - % ?Basophils Percent Auto 1.1 0-2 - % ?NRBC Pct Auto 0.0 0.0-0. 2 - /100WBC ?Neutrophils Absolute Auto 3.3 2.0-8.3 - x10*3/uL ?Imm Gran Abs Auto 0.01 0. 00-0.03 - X10*3/uL ?Lymphocytes Absolute Auto 1.3 1.2-4.9 - X10*3/uL ?Monocytes Absolute Auto 0.6 0.1-1.2 - X10*3/uL ?Eosinophils Absolute Auto 0.1 0.0-0.4 - X10*3/uL ?Basophils Absolute Auto 0.1 0.0-0.2 - X10*3/uL ?NRBC Abs Auto 0.000 0.0-0. 012 - X10*3/uL ???Lab:[facility]prehensive [facility]. P nichole Fast (Order Date - 10/24/2023) (Collection Date - 10/24/2023) ? Value Reference Range ?Sodium 141 135-145 - mmo l/L ?Bilirubin Total 0.5 0.0- 1.0 - mg/dL ?Aspartate Amino Transferase 24 5-37 - U/L ?Alanine Aminotransferase 9 0-40 - U/L ?Total Protein 6.7 6.5-8. 0 - g/dL ?Albumin Level 3.9 3.5-5. 0 - g/dL ?Alkaline Phosphatase 75 39-117 - U/L ?Potassium 4.6 3.3-5.1 - mmol/L ?Chloride 107 96-108 - mm ol/L ?Carbon Dioxide 26 22-29 - mmol/L ?Anion Gap 13 12-20 - ?Blood Urea Nitrogen 18 H 9-16 - mg/dL ?Creatinine 1.63 H 0.5-1.4 - mg/dL ?Estimated Glomerular Filt Rate 41 - ?Glucose Fasting 88 60-9 9 - mg/dL ?Calcium 9.3 8.4-10.2 - m g/dL ???Lab:Lipid Panel (Order Da te - 10/24/2023) (Collection Date - 10/24/2023) ? Value Reference Range ?Triglycerides 65 <150 - mg/dL ?Cholesterol 166 <200 - m g/dL ?LDL Cholesterol Calculated 93 <100 - mg/dL ?HDL Cholesterol 60 >40 - mg/dL ???Lab:PSA,Total (Free>4and< 10) (Order Date - 10/24/2023) (Collection Date - 10/24/2023) ? Value Reference Range ?PSA,Total (Free>4and<10) 0.21 0.00-4.00 - ng/mL ???Lab:UA ClnCatch+Micro w/r flx Cult (Order Date - 10/24/2023) (Collection Date - 10/24/2023) ? Value Reference Range ?Color Urine Yellow - ?Appearance Urine Clear - ?PH 5.5 5.0-9.0 - ?Glucose Urine UA >=1000 A Neg ative - mg/dL ?Urine Blood Negative Negative - ?Specific [place] - Urine 1.015 1.005-1.025 - ?Urine Protein Negative Neg-Tr maria guadalupe - mg/dL ?Urine Ketones Negative Negati ve - mg/dL ?Nitrite Urine Negative Negati ve - ?Leukocyte Esterase Urine Negative Negative - ?RBC Urine 0-2 0-2 - /HPF ?WBC Urine 0-5 0-5 - /HPF ?Squamous Epithelial Cell Urine 0-2 0-2 - /HPF ?Bacteria Urine None Seen None Seen - ?Hyaline Casts Urine 0-2 0-2 - /LPF * Examination: ???General Examination: ?GENERAL APPEARANCE:?well developed, well nourished, in no acute distress.?HEAD:?normocephalic, atraumatic.?EYES:?pupils equal, round, reactive to light and accommodation, sclera non-icteric.?EARS:?normal.?ORAL CAVITY:?mucosa moist.?THROAT:?clear.?NECK/THYROID:?neck supple, full range of motion, no cervical lymphadenopathy, no bruits.?SKIN:?warm and dry, no suspicious lesions.?HEART:?regular rate and rhythm, S1, S2 normal, 3/6 OMARI over the entire precordium.?LUNGS:?clear to auscultation bilaterally.?ABDOMEN:?soft, nontender, nondistended, bowel sounds present, normal, no organomegaly , no masses palpable.?RECTAL EXAM:?normal tone, no external hemorrhoids, no masses palpable, prostate normal, stool guaiac negative.?MALE GENITOURINARY:?abnormal with large hernia in scrotum not able to palpate testes.?EXTREMITIES:?no clubbing, cyanosis, or edema.?NEUROLOGIC:?nonfocal, motor strength normal upper and lower extremities, sensory exam intact.? Assessment: * Assessment: 1.?Annual physical exam - Z0 0.00 (Primary)?2.?History of pacemaker - Z95.0?3.?Aortic valve stenosis, unspecified etiology - I35.0?4.?Pure hypercholesterolemia - E78.00?5.?Systolic congestive heart failure, unspecified congestive heart failure chronicity - I50.20?6.?Permanent atrial fibrillation - I48.21?7.?Colon cancer screening - Z12.11?8.?Depression screening - Z13.31? Plan: * Treatment: 2.?History of pacemaker? Notes: doing well, follows with cardiology?? 3.?Aortic valve stenosis, un specified etiology? Notes: at present still refusing surgery?? 4.?Pure hypercholesterolemia ? Notes: well controlled, at goal, will coontinue current regiment?? 5.?Systolic congestive heart failure, unspecified congestive heart failure chronicity? Notes: Stable. Continue current regiment.?? 6.?Permanent atrial fibrilla tion? Notes: seems in sinus at present, will continue current regiment?? 7.?Colon cancer screening? Notes: guaiac negative?? 8.?Depression screening? Notes: negative screen?? * Procedure Codes:? * Preventive Medicine:? ??CHF Care Plan:?Patient Lifestyle Goals?Have less trouble breathing.?Treatment Goals?Take medicine exactly as directed and plan for RX refills.?Barriers ?No Specific barriers.?Self-Managment Goals?Monitor your symptoms daily.? * Follow Up:?6 Months * * Sign off status: Completed true * Provider:?Deandre Bowden MD Date:?0 10/31/2023 Generated for Alicia lala/Isabel/Regina on:?04/23/2024 12:23 PM EDT History and Physical Notes * [...] patient have a vision impairmen t?: Yes ?If yes, what is the vision impairment?: Glasses Does the patient have a cognition impair ment?: No Examination Category Sub-Category Detail Notes Category Not es General Examination GENERAL APPEARANCE: well dev eloped, well nourished, in no acute distress HEAD: normocephalic, atrau matic EYES: pupils equal, round, reactive to light and accommodation, sclera non- icteric EARS: normal THROAT: clear NECK/THYROID: neck supple, [...]
--- OUTSIDE RECORDS SUMMARY | 2024-04-23 12:24 | XMS_ITS ---
Author Organization Deandre Bowden MD Address [address] [place], [place] [phone] Care Team Providers Care [employer] Name Role Phone Dennise Deandre Primary Care Provider Results Component Value Reference Range Notes Liver Panel Reviewed date:04/23/2024 12:11:23 PM Interpretation: Performing Lab:[facility], [address] [place] [phone] Notes/Report: Bilirubin Total 0.6 0.0-1.0 mg/dL Bilirubin Direct 0.2 0.0-0.5 mg/dL Aspartate Amino Transferase 32 5-37 U/L Alanine Aminotransferase 12 0-40 U/L Total Protein 7.3 6.5-8.0 g/dL Albumin Level 3.9 3.5-5.0 g/dL Alkaline Phosphatase 88 39-117 U/L Lipid Panel with Reflex Reviewed date:04/23/2024 12:18:43 PM Interpretation: Performing Lab:[facility], [address] [place] [phone] Notes/Report: Triglycerides 79 <150 mg/dL Desirable Triglyceride: [...] Location Date Provider Diagnosis Deandre Bowden MD [address] [place] [phone] 04/23/2024 Deandre Bowden Pure hypercholestero lemia E78.00 Assessments Encounter Date Diagnosis (ICD Code) Assessment Notes Treatment Notes Treatment Clinical Notes Section Notes 04/23/2024 Pure hypercholesterolemia (ICD-10 - E78.00) Plan Of Treatment Next Appt Details Provider Name:Deadnre dumas, 04/30/2024 10:45:00 AM, [address] [place] [address], [address], [phone], Provider Name:Deandre dumas, 10/26/2024 07:30:00 AM, [address] [place] [address], [address], [phone], Provider Name:Deandre dumas, 11/02/2024 10:30:00 AM, [address] [place] [address], [address], [phone], Progress Notes * Dante MONTANEZ KDOB:[birth year] (73 yo M)Acc No.[id number]:04/23/2024 Progress Note Patient:?Dante MONTANEZ Provider:?Deandre Bowden MD :1950???Age:73 Y???Sex:Male Que e:04/23/2024 Address:[address] [place] [phone] Subjective: * Chief Complaints: * ???1. FASTING LIPIDS. * Medical History:? Objective: * Vitals:? Assessment: * Assessment: 1.?Pure hypercholesterolemia - E78.00 (Primary)??? Plan: * Treatment: * Procedure Codes:?71564 VENIP UNCT, ROUTINE* * * The named appointment provid er may or may not be the originator of this progress note, and it is not deemed complete until electronically signed by the appointment provider. Sign off status: Pending * Provider:?Deandre Bowden MD Date:?0 04/23/2024 Generated for Alicia lala/Isabel/Ayseitting on:?04/23/2024 12:24 PM EDT
--- OUTSIDE RECORDS SUMMARY | 2024-04-23 12:24 | XMS_ITS ---
Author Organization Deandre Bowden MD Address [address] [place] [phone] Care Team Providers Care Employee [employer] Specialist Name Role Phone Dennise Deandre Primary Care Provider Results Component Value Reference Range Notes Complete Blood Count Auto Di ff Reviewed date:10/26/2023 05:04:39 PM Interpretation: Performing Lab:[facility], [address] [place] [phone] Notes/Report: White Blood Count 5.4 4.8-10.8 X10*3/uL Red Blood Count 4.87 4.60-5.80 X10*6/uL Hemoglobin 13.7 14.0-18.0 g/dl Hematocrit 42.3 42.0-52.0 % Mean Corpuscular Volume 86.9 80.0-98.0 fL Mean Corpuscular Hemoglobin 28.1 27.0-33.0 pg Mean Corpuscular HGB Conc 32.4 31.0-36.0 g/dl Red Cell Distribution Width 15.9 11.0-16.0 % Platelet Count 193 160-400 X10*3/uL Mean Platelet Volume 10.5 9.4-12.4 fL Neutrophils Percent Auto 61.7 45-73 % Imm Gran Pct Auto 0.2 0.0-0.4 % Lymphocytes Percent Auto 24.0 20-40 % Monocytes Percent Auto 11.0 2-11 % Eosinophils Percent Auto 2.0 0-4 % Basophils Percent Auto 1.1 0-2 % NRBC Pct Auto 0.0 0.0-0.2 /100WBC Neutrophils Absolute Auto 3.3 2.0-8.3 x10*3/u L Imm Gran Abs Auto 0.01 0.00-0.03 X10*3/uL Lymphocytes Absolute Auto 1.3 1.2-4.9 X10*3/u L Monocytes Absolute Auto 0.6 0.1-1.2 X10*3/uL Eosinophils Absolute Auto 0.1 0.0-0.4 X10*3/u L Basophils Absolute Auto 0.1 0.0-0.2 X10*3/uL NRBC Abs Auto 0.000 0.0-0.012 X10*3/uL Comprehensive [place]. Panel Fa st Reviewed date:10/26/2023 05:01:57 PM Interpretation: Performing Lab:[facility], [address] [place] [phone] Notes/Report: Sodium 141 135-145 mmol/L Potassium 4.6 3.3-5.1 mmol/L Chloride 107 96-108 mmol/L Carbon Dioxide 26 22-29 mmol/L Anion Gap 13 12-20 Blood Urea Nitrogen 18 9-16 mg/dL Creatinine 1.63 0.5-1.4 mg/dL Estimated Glomerular Filt Rate 41 NOTE: For -[place] individuals, multiply the result by 1.210. Chronic Kidney Disease: Estimated GFR < 60 mL/min/1.73m2 Severe Kidney Disease: Estimated GFR < 15 mL/min/1.73m2 Glucose Fasting 88 60-99 mg/dL Calcium 9.3 8.4-10.2 mg/dL Bilirubin Total 0.5 0.0-1.0 mg/dL Aspartate Amino Transferase 24 5-37 U/L Alanine Aminotransferase 9 0-40 U/L Total Protein 6.7 6.5-8.0 g/dL Albumin Level 3.9 3.5-5.0 g/dL Alkaline Phosphatase 75 39-117 U/L Lipid Panel Reviewed date:10/24/2023 03:46:03 PM Interpretation: Performing Lab:[facility], [address] [place] [phone] Notes/Report: Triglycerides 65 <150 mg/dL Desirable Triglyceride: less than 150 mg/dL Borderline High Triglyceride 150-199 mg/dL High Triglyceride: 200-499 mg/dL Very High Triglyceride: greater than or equal to 5OO mg/dL Cholesterol 166 <200 mg/dL Desirable Cholesterol: less than 200 mg/dL Borderline High Cholesterol: 200-239 mg/dL High Cholesterol: greater than 239 mg/dL LDL Cholesterol Calculated 93 <100 mg/dL Desirable LDL: less than 100 mg/dL Near Optimal/Above Optimal LDL: 110-129 mg/dL Borderline High LDL: 130-159 mg/dL High LDL: 160-189 mg/dL Very High LDL: greater than or equal to 190 mg/dL HDL Cholesterol 60 >40 mg/dL Desirable HDL: greater than 40 mg/dL Note: This HDL assay may give artificially low results in patients with liver disease. PSA,Total (Free>4and<10) Reviewed date:10/24/2023 03:49:12 PM Interpretation: Performing Lab:[facility], [address] [place] [phone] Notes/Report: PSA,Total (Free>4and<10) 0.21 0.00-4.00 ng/mL A Free PSA was not performed: The percentage of Free PSA can be used to enhance the differentiation of prostate cancer from benign prostatic disease in subjects whose PSA levels are between 4.0 and 10.0 ng/mL. For subjects whose PSA levels are below 4.0 or above 10.0 ng/mL, the risk of prostate cancer is determined on the basis of the PSA alone. Therefore the % Free PSA is recommended only for those subjects whose PSA levels are between 4.0 and 10.0 ng/mL. PSA methodology: Rosales Alinity i Chemiluminescent Microparticle Immunoassay (CMIA) UA ClnCatch+Micro w/rflx Cul t Reviewed date:10/26/2023 05:02:13 PM Interpretation: Performing Lab:[facility], [address] [place] [phone] Notes/Report: Urine, Clean Catch Color Urine Yellow Appearance Urine Clear PH 5.5 5.0-9.0 Glucose Urine UA >=1000 Negative mg/dL Urine Blood Negative Negative Specific [place] - Urine 1.015 1.005-1.025 Urine Protein Negative Neg-Trace mg/dL Urine Ketones Negative Negative mg/dL Nitrite Urine Negative Negative Leukocyte Esterase Urine Negative Negative RBC Urine 0-2 0-2 /HPF WBC Urine 0-5 0-5 /HPF Squamous Epithelial Cell Urine 0-2 0-2 /HPF Bacteria Urine None Seen None Seen Hyaline Casts Urine 0-2 0-2 /LPF REASON FOR VISIT FASTING LABS Immunizations Vaccine Route Administration Date Status Comme nts Influenza High Dose IM Intramuscular 10/24/2023 Administer ed Encounters Encounter Location Date Provider Diagnosis Deandre Bowden MD [address] [place] [address] [place] [phone] 10/24/2023 Deandre Bowden Annual physical exam Z00.00 ; Encounter for immunization Z23 ; Systolic congestive heart failure, unspecified congestive heart failure chronicity I50.20 ; Elevated PSA R97.20 ; Monocytosis D72.821 and Pure hypercholesterolemia E78.00 Assessments Encounter Date Diagnosis (ICD Code) Assessment Notes Treatment Notes Treatment Clinical Notes Section Notes 10/24/2023 Annual physical exam (ICD-10 - Z00.00) 10/24/2023 Encounter for immunization (ICD-10 - Z23) 10/24/2023 Systolic congestive heart failure, unspecified congestive heart failure chronicity (ICD-10 - I50.20) 10/24/2023 Elevated PSA (ICD-10 - R97.20) 10/24/2023 Monocytosis (ICD-10 - D72.821) 10/24/2023 Pure hypercholesterolemia (ICD-10 - E78.00) Plan Of Treatment Next Appt Details Provider Name:Deandre dumas, 04/30/2024 10:45:00 AM, [address] [place] [address], [address], [phone], Provider Name:Deandre dumas, 10/26/2024 07:30:00 AM, [address] [place] [address], [address], [phone], Provider Name:Deandre dumas, 11/02/2024 10:30:00 AM, [address] [place] [address], [address], [phone], Progress Notes * Dante MONTANEZ KDOB:[birth year] (73 yo M)Acc No.[id number]:10/24/2023 Progress Note Patient:?Dante MONTANEZ Provider:?Deandre Bowden MD :1950???Age:73 Y???Sex:Male Que e:10/24/2023 Address:[address] [place], [place] [id number] Subjective: * Chief Complaints: * ???1. FASTING LABS. * Medical History:? Objective: * Vitals:? Assessment: * Assessment: 1.?Encounter for immunizatio n - Z23 (Primary)???2.?Annual physical exam - Z00.00???3.?Systolic congestive heart failure, unspecified congestive heart failure chronicity - I50.20???4.?Elevated PSA - R97.20???5.?Monocytosis - D72.821???6.?Pure hypercholesterolemia - E78.00??? Plan: * Treatment: 2.?Systolic congestive heart failure, unspecified congestive heart failure chronicity?LAB: Complete Blood Count Auto Diff (Collection Date & Time - 10/24/2023 08:00 AM) ?LAB: Comprehensive [place]. Panel Fast (Collection Date & Time - 10/24/2023 08:00 AM) ?LAB: Lipid Panel (Collection Date & Time - 10/24/2023 08:00 AM) ?LAB: PSA,Total (Free>4and<10) (Collection Date & Time - 10/24/2023 08:00 AM) ?LAB: UA ClnCatch+Micro w/rflx Cult (Collection Date & Time - 10/24/2023 08:00 AM) 3.?Elevated PSA?LAB: Complete Blood Count Auto Diff (Collection Date & Time - 10/24/2023 08:00 AM) ?LAB: [facility] [place]. Panel Fast (Collection Date & Time - 10/24/2023 08:00 AM) ?LAB: Lipid Panel (Collection Date & Time - 10/24/2023 08:00 AM) ?LAB: PSA,Total (Free>4and<10) (Collection Date & Time - 10/24/2023 08:00 AM) ?LAB: UA ClnCatch+Micro w/rflx Cult (Collection Date & Time - 10/24/2023 08:00 AM) 4.?Monocytosis?LAB: Complete Blood Count Auto Diff (Collection Date & Time - 10/24/2023 08:00 AM) ?LAB: [facility] [place]. Panel Fast (Collection Date & Time - 10/24/2023 08:00 AM) ?LAB: Lipid Panel (Collection Date & Time - 10/24/2023 08:00 AM) ?LAB: PSA,Total (Free>4and<10) (Collection Date & Time - 10/24/2023 08:00 AM) ?LAB: UA ClnCatch+Micro w/rflx Cult (Collection Date & Time - 10/24/2023 08:00 AM) 5.?Pure hypercholesterolemia ?LAB: Complete Blood Count Auto Diff (Collection Date & Time - 10/24/2023 08:00 AM) ?LAB: [facility] [place]. Panel Fast (Collection Date & Time - 10/24/2023 08:00 AM) ?LAB: Lipid Panel (Collection Date & Time - 10/24/2023 08:00 AM) ?LAB: PSA,Total (Free>4and<10) (Collection Date & Time - 10/24/2023 08:00 AM) ?LAB: UA ClnCatch+Micro w/rflx Cult (Collection Date & Time - 10/24/2023 08:00 AM) * Immunizations:? Influenza High Dose : 0.5 mL (Dose No:1) (Route: Intramuscular) given by Rhiannon Burns , Office Staff on Left Deltoid * Procedure Codes:?88277 FLU V ACC PRSV FREE INC ANTIG, G0008 ADMN FLU VAC NO FEE SCHED SAME DAY, 28762 VENIPUNCT, ROUTINE* * * The named appointment provid er may or may not be the originator of this progress note, and it is not deemed complete until electronically signed by the appointment provider. Sign off status: Pending * Provider:?Deandre Bowden MD Date:?0 10/24/2023 Generated for Alicia lala/Isabel/Regina on:?04/23/2024 12:24 PM EDT
== END 2024-04-23 10:48 | disposition home or self-care (01) ==
LOC: HO.LNP 10:47
PROVIDERS: Visit Provider Internal Medicine
DX: E78.00 Pure hypercholesterolemia, unspecified (principal)
CPT/HCPCS: 80061; 80076

== ENCOUNTER 2024-10-26 10:51 | Outpatient (REF) | payer MEDICARE, SELFPAY ==
--- OUTSIDE RECORDS SUMMARY | 2023-10-31 07:00 | XMS_ITS ---
Author Organization Deandre Bowden MD Address [address] [place] [phone] Care Team Providers Care Sleeve Setter Safety Stitch Name Role Phone Deandre Bowden Primary Care Provider [phone] Allergies No Known Allergies REASON FOR VISIT ANNUAL EXAM Medications Medication SIG (Take, Route, Frequency, Duration) Notes Start Date End Date Status Atorvastatin Calcium 40 MG TAKE 1 TABLET BY MOUTH EVERY DAY for 90 Active Dapagliflozin Propanediol 10 MG 1 tablet Orally Once a day for 90 days Active Metoprolol Succinate ER 100 MG 1 tablet Orally Once a day for 90 days Active Amiodarone HCl 200 MG 1tablet Orally Onc e a day for 90 days Active Furosemide 20 MG 1 tablet Orally Twic e a day Not-Taking Eliquis 5 MG 1 tablet Orally Twic e a day for 90 days Active Social History Tobacco Use/Smoking Question Answer Notes How long has it been since y ou last smoked? > 10 years Additional Findings: Tobacco Non-User Fo rmer smoker, currently using no form of tobacco Alcohol Screen Question Answer Notes Did you have a drink containing alcohol in the p ast year? No Points 0 Interpretation Negative Problems Problem Type SNOMED Code ICD Code Onset Dates Problem Status W/U Status Risk Notes Problem [id number] Permanent atrial fibrillation (I48.21) Active confirmed Vital Signs Blood pressure systolic 112 mm Hg 10/31/19 Blood pressure diastolic 64 mm Hg 024 Height 68 in 10/31/2023 Weight 198 lbs 10/31/2023 BMI 30.10 kg/m2 10/31/2023 weight is up 7 pounds since 08-07-23 Encounters Encounter Location Date Provider Diagnosis Deandre Bowden MD [address] [facility] [address] [place], [place] [phone] 10/31/2023 Deandre Bowden History of pacemaker Z95.0 ; Annual physical exam Z00.00 ; Aortic valve stenosis, unspecified etiology I35.0 ; Pure hypercholesterolemia E78.00 ; Systolic congestive heart failure, unspecified congestive heart failure chronicity I50.20 ; Permanent atrial fibrillation I48.21 ; Colon cancer screening Z12.11 and Depression screening Z13.31 Assessments Encounter Date Diagnosis (ICD Code) Assessment Notes Treatment Notes Treatment Clinical Notes Section Notes 10/31/2023 History of pacemaker (ICD-10 - Z95.0) doing well, follows with cardiology 10/31/2023 Annual physical exam (ICD-10 - Z00.00) labs reviewed and discussed with patient 10/31/2023 Aortic valve stenosi s, unspecified etiology (ICD-10 - I35.0) at present still refusing surgery 10/31/2023 Pure hypercholesterolemia (ICD-10 - E78.00) well controlled, at goal, will coontinue current regiment 10/31/2023 Systolic congestive heart failure, unspecified congestive heart failure chronicity (ICD-10 - I50.20) Stable. Continue current regiment. 10/31/2023 Permanent atrial fibrillation (ICD-10 - I48.21) seems in sinus at present, will continue current regiment 10/31/2023 Colon cancer screeni ng (ICD-10 - Z12.11) guaiac negative 10/31/2023 Depression screening (ICD-10 - Z13.31) negative screen 10/31/2023 Other Plan Of Treatment Treatment Notes Assessment Notes History of pacemaker doing well, follows with cardiology Annual physical exam labs reviewed and d iscussed with patient Aortic valve stenosis, unspecified etiol ogy at present still refusing surgery Pure hypercholesterolemia well controlle d, at goal, will coontinue current regiment Systolic congestive heart fa ilure, unspecified congestive heart failure chronicity Stable. Continue current regiment. Permanent atrial fibrillation seems in s inus at present, will continue current regiment Colon cancer screening guaiac negative Depression screening negative screen Next Appt Details Follow Up: 6 Months, Reason: Provider Name:Deandre Chu ier, 11/02/2024 10:30:00 AM, [address] [place] [address], [address], [place], [place], [phone], Progress Notes * LISSETH Dante KDOB:[birth year] (73 yo M)Acc No.[id number]:10/31/2023 Progress Notes Patient: Dante Tran Provider: Ryley Bowden MD :1950 A ge:73 Y S ex:Male Date:10/31/2023 Address:[address] [place] [id number] Subjective: * Chief Complaints: * A NNUAL EXAM * HPI: D epression Screening: PHQ-9 L ittle interest or pleasure in doing things N ot at all, F eeling down, depressed, or hopeless N ot at all, T rouble falling or staying asleep, or sleeping too much N ot at all, F eeling tired or having little energy N ot at all, P oor appetite or overeating N ot at all, F eeling bad about yourself or that you are a failure, or have let yourself or your family down N ot at all, T rouble concentrating on things, such as reading the newspaper or watching television N ot at all, M oving or speaking so slowly that other people could have noticed; or the opposite, being so fidgety or restless that you have been moving around a lot more than usual N ot at all, T houghts that you would be better off or of hurting yourself in some way N ot at all, T otal Score 0 . I nterpretation and Intervention D epression Screening Findings N egative, F ollow-Up for Depression : review of PHQ-9 found negative result, no follow-up needed. C ommunication Needs: Communication Needs D oes the patient have a hearing impairment N o, D oes the patient have a vision impairment? Y es, I f yes, what is the vision impairment? G lasses, D oes the patient have a cognition impairment? N o. F all Risk: History H ave you had any falls with injury in the past year? N o, H ave you had two or more falls in the past year? N o. S MARISOL Questions: SDOH Questions I n the past year have you been worried about losing housing? N o, I n the past year have you or any family members you live with been unable to get any of the following when it was really needed? Check all that apply: N one. S ymptom(s): patient is a 73 yo male here for annual visit with review of recent labs and follow up of chronic issues. * ROS: G eneral/Constitutional: Patient denies f atigue , headache. C hange in appetite?denies. C hills d enies. F ever d enies. O phthalmologic: Blurred vision d enies. D ischarge d enies. P ain d enies. E NT: Patient denies d ecreased sense of smell , any loss of taste , sore throat. D ecreased hearing d enies. S ore throat d enies. S wollen glands d enies. E ndocrine: Cold intolerance d enies. E xcessive thirst d enies. H eat intolerance d enies. W eight loss d enies. R espiratory: Cough d enies. S hortness of breath at rest d enies. S hortness of breath with exertion d enies. W heezing d enies. C ardiovascular: Chest pain at rest d enies. C hest pain with exertion?denies. I rregular heartbeat d enies. S hortness of breath d enies. ? G astrointestinal: Abdominal pain d enies. C hange in bowel habits d enies. D iarrhea d enies. N ausea d enies. R ectal bleeding d enies. V omiting d enies . G enitourinary: Blood in urine d enies. D ifficulty urinating d enies. F requent urination d enies. M usculoskeletal: Patient denies m uscle aches. P ainful joints d enies. W eakness d enies. P eripheral Vascular: Patient denies r ed and blue toes. S kin: Dry skin d enies. I tching d enies. D enies?Mole(s), changes in moles, new moles or any lesions of concern. D enies P hotosensitivity. R sakshi d enies. N eurologic: Dizziness d enies. F ainting d enies. H eadache?denies. * Medical History: * Surgical History: * Hospitalization/Major Diagno stic Procedure: * Family History: F ather: 76 yrs. M other: 56 yrs, diagnosed with Cancer. 1 sister(s) - healthy. . father, pneumonia mother, [place], No pertinent family medical history, Denies mental health/substance abuse family history, Denies mental health/substance abuse family history, Denies mental health/substance abuse family history, Denies mental health/substance abuse family history. * Social History: T obacco Use: T obacco Use/Smoking H ow long has it been since you last smoked? > 10 years, A dditional Findings: Tobacco Non-User F ormer smoker, currently using no form of tobacco. D rugs/Alcohol: A lcohol Screen D id you have a drink containing alcohol in the past year? N o, P oints 0 , I nterpretation N egative. M iscellaneous: C affeine: yes, frequency:, 1 cup per day. no Children. Community involvements: yes, [facility]. Exercise: yes, walking daily 1 mile daily. Housing: renting. Living with: alone. Marital status: single. Occupation: retired. no Sexual abuse. no Travel outside of the [place]. * Medications: T akingMetoprolol Succinate ER 100 MG Tablet Extended Release 24 Hour 1 tablet Orally Once a dayAmiodarone HCl 200 MG Tablet 1tablet Orally Once a dayDapagliflozin Propanediol 10 MG Tablet 1 tablet Orally Once a dayEliquis 5 MG Tablet 1 tablet Orally Twice a dayAtorvastatin Calcium 40 MG Tablet TAKE 1 TABLET BY MOUTH EVERY DAY Taking Metoprolol Succinate ER 100 MG Tablet Extended Release 24 Hour 1 tablet Orally Once a dayTaking Amiodarone HCl 200 MG Tablet 1tablet Orally Once a dayTaking Dapagliflozin Propanediol 10 MG Tablet 1 tablet Orally Once a dayTaking Eliquis 5 MG Tablet 1 tablet Orally Twice a dayTaking Atorvastatin Calcium 40 MG Tablet TAKE 1 TABLET BY MOUTH EVERY DAY Not-Taking/PRNFurosemide 20 MG Tablet 1 tablet Orally Twice a dayMedication List reviewed and reconciled with the patientNot-Taking/PRN Furosemide 20 MG Tablet 1 tablet Orally Twice a dayMedication List reviewed and reconciled with the patient * Allergies: N .K.D.A.yes[Allergies Verified] Objective: * Vitals: H t: 68, Wt:198, BMI:30.10, BP:112/64 weight is up 7 pounds since 08-07-23. * P ast Orders: L ab:Complete Blood Count Auto Diff (Order Date - 10/24/2023) (Collection Date - 10/24/2023) Value Reference Range White Blood Count 5.4 4.8-10.8 - X10*3/uL Red Blood Count 4.87 4.60-5.80 - X10*6/uL Hemoglobin 13.7 L 14.0-18.0 - g/dl Hematocrit 42.3 42.0-52.0 - % Mean Corpuscular Volume 86.9 80.0-98.0 - fL Mean Corpuscular Hemoglobin 28.1 27.0-33.0 - pg Mean Corpuscular HGB Conc 32.4 31.0-36.0 - g/ dl Red Cell Distribution Width 15.9 11.0-16.0 - % Platelet Count 193 160-400 - X10*3/uL Mean Platelet Volume 10.5 9.4-12.4 - fL Neutrophils Percent Auto 61.7 45-73 - % Imm Gran Pct Auto 0.2 0.0-0.4 - % Lymphocytes Percent Auto 24.0 20-40 - % Monocytes Percent Auto 11.0 2-11 - % Eosinophils Percent Auto 2.0 0-4 - % Basophils Percent Auto 1.1 0-2 - % NRBC Pct Auto 0.0 0.0-0.2 - /100WBC Neutrophils Absolute Auto 3.3 2.0-8.3 - x10* 3/uL Imm Gran Abs Auto 0.01 0.00-0.03 - X10*3/uL Lymphocytes Absolute Auto 1.3 1.2-4.9 - X10* 3/uL Monocytes Absolute Auto 0.6 0.1-1.2 - X10*3/ uL Eosinophils Absolute Auto 0.1 0.0-0.4 - X10* 3/uL Basophils Absolute Auto 0.1 0.0-0.2 - X10*3/ uL NRBC Abs Auto 0.000 0.0-0.012 - X10*3/uL L ab:Comprehensive [place]. Panel Fast (Order Date 10/24/2023) (Collection Date - 10/24/2023) Value Reference Range Sodium 141 135-145 - mmol/L Bilirubin Total 0.5 0.0-1.0 - mg/dL Aspartate Amino Transferase 24 5-37 - U/L Alanine Aminotransferase 9 0-40 - U/L Total Protein 6.7 6.5-8.0 - g/dL Albumin Level 3.9 3.5-5.0 - g/dL Alkaline Phosphatase 75 39-117 - U/L Potassium 4.6 3.3-5.1 - mmol/L Chloride 107 96-108 - mmol/L Carbon Dioxide 26 22-29 - mmol/L Anion Gap 13 12-20 - Blood Urea Nitrogen 18 H 9-16 - mg/dL Creatinine 1.63 H 0.5-1.4 - mg/dL Estimated Glomerular Filt Rate 41 - Glucose Fasting 88 60-99 - mg/dL Calcium 9.3 8.4-10.2 - mg/dL L ab:Lipid Panel (Order Date - 10/24/2023) (Collection Date 10/24/2023) Value Reference Range Triglycerides 65 <150 - mg/dL Cholesterol 166 <200 - mg/dL LDL Cholesterol Calculated 93 <100 - mg/dL HDL Cholesterol 60 >40 - mg/dL L ab:PSA,Total (Free>4and<10) (Order Date 10/24/2023) (Collection Date 10/24/2023) Value Reference Range PSA,Total (Free>4and<10) 0.21 0.00-4.00 - ng/ mL L ab:UA ClnCatch+Micro w/rflx Cult (Order Date - 10/24/2023) (Collection Date 10/24/2023) Value Reference Range Color Urine Yellow - Appearance Urine Clear - PH 5.5 5.0-9.0 - Glucose Urine UA >=1000 A Negative - mg/dL Urine Blood Negative Negative - Specific [place] - Urine 1.015 1.005-1.025 - Urine Protein Negative Neg-Trace - mg/dL Urine Ketones Negative Negative - mg/dL Nitrite Urine Negative Negative - Leukocyte Esterase Urine Negative Negative - RBC Urine 0-2 0-2 - /HPF WBC Urine 0-5 0-5 - /HPF Squamous Epithelial Cell Urine 0-2 0-2 - /HP F Bacteria Urine None Seen None Seen - Hyaline Casts Urine 0-2 0-2 - /LPF * Examination: G eneral Examination: GENERAL APPEARANCE: w ell developed, well nourished, in no acute distress. HEAD: n ormocephalic, atraumatic. EYES: p upils equal, round, reactive to light and accommodation, sclera non-icteric. EARS: n ormal. ORAL CAVITY: m ucosa moist. THROAT: c lear. NECK/THYROID: n conrado supple, full range of motion, no cervical lymphadenopathy, no bruits. SKIN: w arm and dry, no suspicious lesions. HEART: r egular rate and rhythm, S1, S2 normal, 3/6 OMARI over the entire precordium. LUNGS: c lear to auscultation bilaterally. ABDOMEN: s oft, nontender, nondistended, bowel sounds present, normal, no organomegaly , no masses palpable. RECTAL EXAM: n ormal tone, no external hemorrhoids, no masses palpable, prostate normal, stool guaiac negative. MALE GENITOURINARY: a bnormal with large hernia in scrotum not able to palpate testes. EXTREMITIES: n o clubbing, cyanosis, or edema. NEUROLOGIC: n onfocal, motor strength normal upper and lower extremities, sensory exam intact. Assessment: * Assessment: 1. A nnual physical exam - Z00.00 (Primary) 2 . H istory of pacemaker - Z95.0 3 .?Aortic valve stenosis, unspecified etiology - I35.0 4 . P ure hypercholesterolemia - E78.00 5 . S ystolic congestive heart failure, unspecified congestive heart failure chronicity - I50.20 6 . P ermanent atrial fibrillation - I48.21 7 . C olon cancer screening - Z12.11 8 . D epression screening - Z13.31 Plan: * Treatment: 2. H istory of pacemaker Notes: doing well, follows with cardiology 3. A ortic valve stenosis, unspecified etiology Notes: at present still refusing surgery 4. P ure hypercholesterolemia Notes: well controlled, at goal, will coontinue current regiment 5. S ystolic congestive heart failure, unspecified congestive heart failure chronicity Notes: Stable. Continue current regiment. 6. P ermanent atrial fibrillation Notes: seems in sinus at present, will continue current regiment 7. C olon cancer screening Notes: guaiac negative 8. D epression screening Notes: negative screen * Procedure Codes: * Preventive Medicine: CHF Care Plan: P atient Lifestyle Goals H ave less trouble breathing. T reatment Goals T ines medicine exactly as directed and plan for RX refills. B arriers N o Specific barriers. S elf-Managment Goals M onitor your symptoms daily. * Follow Up: 6 Months * * Sign off status: Completed true * Provider: Ryley Bowden MD Date: 0 10/31/2023 Generated for Alicia lala/Isabel/eTransmitting on: 0 10/26/2024 02:33 PM EDT History and Physical Notes * HPI (History of Present Illness) Category Sub-Category Detail Notes Category Not es Symptom(s) patient is a 73 yo male here for annual visit with review of recent labs and follow up of chronic issues Depression Screening PHQ-9 Little inte rest or pleasure in doing things: Not at all Feeling down, depressed, or hopeless: No t at all Trouble falling or staying asleep, or sl eeping too much: Not at all Feeling tired or having little energy: N ot at all Poor appetite or overeating: Not at all Feeling bad about yourself o r that you are a failure, or have let yourself or your family down: Not at all Trouble concentrating on thi ngs, such as reading the newspaper or watching television: Not at all Moving or speaking so slowly that other people could have noticed; or the opposite, being so fidgety or restless that you have been moving around a lot more than usual: Not at all Thoughts that you would be b bhaskar off or of hurting yourself in some way: Not at all Total Score: 0 Interpretation and Intervention Depression Reji araiza Findings: Negative Follow-Up for Depression: : review of PH Q-9 found negative result, no follow-up needed SDOH Questions SDOH Questions In the past year have you been worried about losing housing?: No In the past year have you or any family members you live with been unable to get any of the following when it was really needed? Check all that apply:: None Fall Risk History Have you had any falls with injury i n the past year?: No Have you had two or more falls in the year?: No Communication Needs Communication Needs Does the patient have a hearing impairment: No Does the patient have a vision impairmen t?: Yes If yes, what is the vision impairment?: Glasses Does the patient have a cognition impair ment?: No Examination Category Sub-Category Detail Notes Category Not es General Examination GENERAL APPEARANCE: well dev eloped, well nourished, in no acute distress HEAD: normocephalic, atrau matic EYES: pupils equal, round, reactive to light and accommodation, sclera non-icteric EARS: normal THROAT: clear NECK/THYROID: neck supple, full ra nge of motion, no cervical lymphadenopathy, no bruits HEART: regular rate and rhy thm, S1, S2 normal, 3/6 OMARI over the entire precordium LUNGS: clear to auscultatio n bilaterally ABDOMEN: soft, nontender, non distended, bowel sounds present, normal, no organomegaly , no masses palpable NEUROLOGIC: nonfocal, motor stre ngth normal upper and lower extremities, sensory exam intact SKIN: warm and dry, no inge picious lesions EXTREMITIES: no clubbing, cyanosi s, or edema MALE GENITOURINARY: abnormal with large hernia in scrotum not able to palpate testes RECTAL EXAM: normal tone, no exte rnal hemorrhoids, no masses palpable, prostate normal, stool guaiac negative ORAL CAVITY: mucosa moist
--- OUTSIDE RECORDS SUMMARY | 2024-04-23 04:15 | XMS_ITS ---
Author Organization Deandre Bowden MD Address [address] [place], [place] [phone] Care Team Providers Care Manager Women Name Role Phone DenniseEdilberton Primary Care Provider Results Component Value Reference Range Notes Liver Panel Reviewed date:04/23/2024 12:11:23 PM Interpretation: Performing Lab:[facility], [address] [place] [phone] Notes/Report: Bilirubin Total 0.6 0.0-1.0 mg/dL Bilirubin Direct 0.2 0.0-0.5 mg/dL Aspartate Amino Transferase 32 5-37 U/L Alanine Aminotransferase 12 0-40 U/L Total Protein 7.3 6.5-8.0 g/dL Albumin Level 3.9 3.5-5.0 g/dL Alkaline Phosphatase 88 39-117 U/L Lipid Panel with Reflex Reviewed date:04/23/2024 12:18:43 PM Interpretation: Performing Lab:[facility], [address] [place] [phone] Notes/Report: Triglycerides 79 <150 mg/dL Desirable Triglyceride: less than 150 mg/dL Borderline High Triglyceride 150-199 mg/dL High Triglyceride: 200-499 mg/dL Very High Triglyceride: greater than or equal to 5OO mg/dL Cholesterol 155 <200 mg/dL Desirable Cholesterol: less than 200 mg/dL Borderline High Cholesterol: 200-239 mg/dL High Cholesterol: greater than 239 mg/dL LDL Cholesterol Calculated 78 <100 mg/dL Desirable LDL: less than 100 mg/dL Near Optimal/Above Optimal LDL: 110-129 mg/dL Borderline High LDL: 130-159 mg/dL High LDL: 160-189 mg/dL Very High LDL: greater than or equal to 190 mg/dL HDL Cholesterol 62 >40 mg/dL Desirable HDL: greater than 40 mg/dL Note: This HDL assay may give artificially low results in patients with liver disease. REASON FOR VISIT FASTING LIPIDS Encounters Encounter Location Date Provider Diagnosis Deandre Bowden MD [address] [place] [address] [place] [phone] 04/23/2024 Deandre Bowden Pure hypercholestero lemia E78.00 Assessments Encounter Date Diagnosis (ICD Code) Assessment Notes Treatment Notes Treatment Clinical Notes Section Notes 04/23/2024 Pure hypercholesterolemia (ICD-10 - E78.00) Plan Of Treatment Next Appt Details Provider Name:Deandre Chu ier, 11/02/2024 10:30:00 AM, [address] [place] [address], [address] [facility], [place], [place], [phone], Progress Notes * Dante MONTANEZ KDOB:[birth year] (74 yo M)Acc No.[id number]:04/23/2024 Progress Note Patient: Dante METZGER Provider: Ryley Bowden MD :1950 A ge:73 Y S ex:Male Date:04/23/2024 Address:[address] [place] [id number] Subjective: * Chief Complaints: * 1 . FASTING LIPIDS. * Medical History: Objective: * Vitals: Assessment: * Assessment: 1. P ure hypercholesterolemia - E78.00 (Primary) Plan: * Treatment: * Procedure Codes: 3 6415 VENIPUNCT, ROUTINE* * * The named appointment provid er may or may not be the originator of this progress note, and it is not deemed complete until electronically signed by the appointment provider. Sign off status: Pending * Provider: Ryley Bowden MD Date: 0 04/23/2024 Generated for Alicia lala/Isaebl/Regina on: 0 10/26/2024 02:33 PM EDT
--- OUTSIDE RECORDS SUMMARY | 2024-04-26 06:35 | XMS_ITS ---
Author Organization Deandre Bowden MD Address [address] [facility] [address] [place] [phone] Care Team Providers Care Chief Design Branch Name Role Phone Deandre Bowden Primary Care Provider REASON FOR VISIT HCC Risk Codes 11/02 Encounters Encounter Location Date Provider Diagnosis Deandre Bowden MD [address] [facility] [address] [place] [phone] 04/26/2024 Deandre Bowden Plan Of Treatment Next Appt Details Provider Name:Deandre Chu ier, 11/02/2024 10:30:00 AM, [address] [place] [address], [address], [phone], Progress Notes * Dante MONTANEZ KDOB:[birth year] (73 yo M)Acc No.[id number]:04/26/2024 Patient: Martha GUTIERREZDante NOEL :1950 A ge:73 Y S ex:Male Address:[address] [place] [address], [phone] * true * Date: Generated for Printi ng/Faayannag/eTransmitting on: 0 10/26/2024 02:33 PM EDT
--- OUTSIDE RECORDS SUMMARY | 2024-04-30 06:45 | XMS_ITS ---
Author Organization Deandre Bowden MD Address [address] [place] [phone] Care Team Providers Care Manager Community Development Name Role Phone Dennise Deandre Primary Care Provider Allergies No Known Allergies REASON FOR VISIT 6 MO F/U Medications Medication SIG (Take, Route, Frequency, Duration) Notes Start Date End Date Status Metoprolol Succinate ER 200 MG TAKE 1 TABLET BY MOUTH EVERY DAY FOR 90 DAYS Active Amiodarone HCl 200 MG 1tablet Orally Onc e a day Active Eliquis 5 MG TAKE 1 TABLET BY GLO TH TWICE A DAY FOR 90 DAYS for 90 Active Atorvastatin Calcium 40 MG TAKE 1 TABLET BY MOUTH EVERY DAY Active Furosemide 20 MG 1 tablet Orally Twic e a day Not-Taking Dapagliflozin Propanediol 10 MG 1 tablet Orally Once a day for 90 days Active Vital Signs Blood pressure systolic 106 mm Hg 05/01/19 25 Blood pressure diastolic 60 mm Hg 025 Height 68 in 04/30/2024 Weight 208 lbs 04/30/2024 BMI 31.62 kg/m2 04/30/2024 weight is up 10 pounds since 10-31-23 Encounters Encounter Location Date Provider Diagnosis Deandre Bowden MD [address] [place] [phone] 04/30/2024 Deandre Bowden Aortic valve stenosi s, unspecified etiology I35.0 ; Systolic congestive heart failure, unspecified congestive heart failure chronicity I50.20 and Pure hypercholesterolemia E78.00 Assessments Encounter Date Diagnosis (ICD Code) Assessment Notes Treatment Notes Treatment Clinical Notes Section Notes 04/30/2024 Aortic valve stenosi s, unspecified etiology (ICD-10 - I35.0) followed by cardiology 04/30/2024 Systolic congestive heart failure, unspecified congestive heart failure chronicity (ICD-10 - I50.20) doing well with no complaints, will continue current regiment 04/30/2024 Pure hypercholesterolemia (ICD-10 - E78.00) stable, will continue current regiment Plan Of Treatment Medication Medication Name Sig Start Date Stop Date Notes Metoprolol Succinate ER 200 MG TAKE 1 TA BLET BY MOUTH EVERY DAY FOR 90 DAYS Amiodarone HCl 200 MG 1tablet Orally Once a day Atorvastatin Calcium 40 MG TAKE 1 TABLET BY MOUTH EVERY DAY Treatment Notes Assessment Notes Aortic valve stenosis, unspecified etiol ogy followed by cardiology Systolic congestive heart fa ilure, unspecified congestive heart failure chronicity doing well with no complaints, will continue current regiment Pure hypercholesterolemia stable, will c ontinue current regiment Next Appt Details Provider Name:Deandre Chu ier, 11/02/2024 10:30:00 AM, [address] [place] [address], [address], [place], [place], [phone], Progress Notes * Dante MONTANEZ KDOB:[birth year] (73 yo M)Acc No.[id number]:04/30/2024 Progress Notes Patient: Dante METZGER Provider: Ryley Bowden MD :1950 A ge:73 Y S ex:Male Date:04/30/2024 Address:[address] [place] [id number] Subjective: * Chief Complaints: * 6 MO F/U * HPI: S ymptom(s): patient is a 73 yo male here for 6 month follow up visit. * ROS: G eneral/Constitutional: Denies C hills. D enies F atigue. D enies F ever. D enies H eadache. E NT: Patient denies d ecreased sense of smell, any loss of taste, sore throat. D enies S ore throat. R espiratory: Denies C ough. D enies S hortness of breath at rest. D enies S hortness of breath with exertion. G astrointestinal: Denies D iarrhea. D enies N ausea. M usculoskeletal: Patient denies m uscle aches. P eripheral Vascular: Patient denies r ed and blue toes. * Medical History: * Surgical History: * Hospitalization/Major Diagno stic Procedure: * Medications: T akingAmiodarone HCl 200 MG Tablet 1tablet Orally Once a day Dapagliflozin Propanediol 10 MG Tablet 1 tablet Orally Once a day Atorvastatin Calcium 40 MG Tablet TAKE 1 TABLET BY MOUTH EVERY DAY Metoprolol Succinate ER 200 MG Tablet Extended Release 24 Hour TAKE 1 TABLET BY MOUTH EVERY DAY FOR 90 DAYS Eliquis 5 MG Tablet TAKE 1 TABLET BY MOUTH TWICE A DAY FOR 90 DAYS Taking Amiodarone HCl 200 MG Tablet 1tablet Orally Once a day Taking Dapagliflozin Propanediol 10 MG Tablet 1 tablet Orally Once a day Taking Atorvastatin Calcium 40 MG Tablet TAKE 1 TABLET BY MOUTH EVERY DAY Taking Metoprolol Succinate ER 200 MG Tablet Extended Release 24 Hour TAKE 1 TABLET BY MOUTH EVERY DAY FOR 90 DAYS Taking Eliquis 5 MG Tablet TAKE 1 TABLET BY MOUTH TWICE A DAY FOR 90 DAYS Not-Taking/PRNFurosemide 20 MG Tablet 1 tablet Orally Twice a day Medication List reviewed and reconciled with the patientNot-Taking/PRN Furosemide 20 MG Tablet 1 tablet Orally Twice a day Medication List reviewed and reconciled with the patient * Allergies: N .K.D.A.yes[Allergies Verified] Objective: * Vitals: H t: 68, Wt: 208, BMI:31.62, BP:106/60, Wt-k.35. weight is up 10 pounds since 10-31-23. * P ast Orders: L ab:Liver Panel (Order Date - 04/23/2024) (Collection Date & Time - 04/23/2024 08:15 AM) Value Reference Range Bilirubin Total 0.6 0.0-1.0 - mg/dL Bilirubin Direct 0.2 0.0-0.5 - mg/dL Aspartate Amino Transferase 32 5-37 - U/L Alanine Aminotransferase 12 0-40 - U/L Total Protein 7.3 6.5-8.0 - g/dL Albumin Level 3.9 3.5-5.0 - g/dL Alkaline Phosphatase 88 39-117 - U/L L ab:Lipid Panel with Reflex (Order Date - 04/23/2024) (Collection Date & Time - 04/23/2024 08:15 AM) Value Reference Range Triglycerides 79 <150 - mg/dL Cholesterol 155 <200 - mg/dL LDL Cholesterol Calculated 78 <100 - mg/dL HDL Cholesterol 62 >40 - mg/dL * Examination: G eneral Examination: GENERAL APPEARANCE: a lert, well hydrated, in no distress.? HEAD: n ormocephalic, abnormal with a little bleeding from his pinna from scratching it. SKIN: g ood turgor. HEART: 3 /6 OMARI at rt sternal border. LUNGS: n o wheezes, rales, rhonchi, good air movement, clear to auscultation bilaterally. EXTREMITIES: n o edema. Assessment: * Assessment: 1. A ortic valve stenosis, unspecified etiology - I35.0 (Primary) 2 . S ystolic congestive heart failure, unspecified congestive heart failure chronicity - I50.20 ?3. P ure hypercholesterolemia - E78.00 Plan: * Treatment: 2. S ystolic congestive heart failure, unspecified congestive heart failure chronicity Continue Amiodarone HCl Tablet, 200 MG, 1tablet, Orally, Once a day; C ontinue Metoprolol Succinate ER Tablet Extended Release 24 Hour, 200 MG, TAKE 1 TABLET BY MOUTH EVERY DAY FOR 90 DAYS. ? Notes: doing well with no complaints, will continue current regiment 3. P ure hypercholesterolemia Continue Atorvastatin Calcium Tablet, 40 MG, TAKE 1 TABLET BY MOUTH EVERY DAY. Notes: stable, will continue current regiment * Procedure Codes: * * Sign off status: Completed true * Provider: Ryley Bowden MD Date: 0 04/30/2024 Generated for Alicia lala/Isabel/Ayseitting on: 0 10/26/2024 02:33 PM EDT History and Physical Notes * HPI (History of Present Illness) Category Sub-Category Detail Notes Category Not es Symptom(s) patient is a 73 yo male here for 6 month follow up visit Examination Category Sub-Category Detail Notes Category Not es General Examination GENERAL APPEARANCE: alert, w ell hydrated, in no distress HEAD: normocephalic, abnor mal with a little bleeding from his pinna from scratching it HEART: 3/6 OMARI at rt sterna l border LUNGS: no wheezes, rales, r honchi, good air movement, clear to auscultation bilaterally SKIN: good turgor EXTREMITIES: no edema
--- OUTSIDE RECORDS SUMMARY | 2024-10-26 03:30 | XMS_ITS ---
Author Organization Deandre Bowden MD Address [address] [place] [phone] Care Team Providers Care Flavorings Compounder Name Role Phone DenniseEdilberton Primary Care Provider [phone] Results Component Value Reference Range Notes Complete Blood Count Auto Di ff Reviewed date:10/26/2024 12:23:24 PM Interpretation: Performing Lab:[facility], [address] [place] [phone] Notes/Report: White Blood Count 7.2 4.8-10.8 X10*3/uL Red Blood Count 4.96 4.60-5.80 X10*6/uL Hemoglobin 14.2 14.0-18.0 g/dl Hematocrit 44.3 42.0-52.0 % Mean Corpuscular Volume 89.3 80.0-98.0 fL Mean Corpuscular Hemoglobin 28.6 27.0-33.0 pg Mean Corpuscular HGB Conc 32.1 31.0-36.0 g/dl Red Cell Distribution Width 15.3 11.0-16.0 % Platelet Count 222 160-400 X10*3/uL Mean Platelet Volume 11.3 9.4-12.4 fL Neutrophils Percent Auto 63.0 45-73 % Imm Gran Pct Auto 0.1 0.0-0.4 % Lymphocytes Percent Auto 23.3 20-40 % Monocytes Percent Auto 11.0 2-11 % Eosinophils Percent Auto 1.5 0-4 % Basophils Percent Auto 1.1 0-2 % NRBC Pct Auto 0.0 0.0-0.2 /100WBC Neutrophils Absolute Auto 4.5 2.0-8.3 x10*3/u L Imm Gran Abs Auto 0.01 0.00-0.03 X10*3/uL Lymphocytes Absolute Auto 1.7 1.2-4.9 X10*3/u L Monocytes Absolute Auto 0.8 0.1-1.2 X10*3/uL Eosinophils Absolute Auto 0.1 0.0-0.4 X10*3/u L Basophils Absolute Auto 0.1 0.0-0.2 X10*3/uL NRBC Abs Auto 0.000 0.0-0.012 X10*3/uL Comprehensive [place]. Panel Fa st Reviewed date:10/26/2024 12:24:00 PM Interpretation: Performing Lab:[address] [phone] Notes/Report: Sodium 143 135-145 mmol/L Potassium 4.5 3.3-5.1 mmol/L Chloride 108 96-108 mmol/L Carbon Dioxide 27 22-29 mmol/L Anion Gap 13 12-20 Blood Urea Nitrogen 16 9-16 mg/dL Creatinine 1.61 0.5-1.4 mg/dL Estimated Glomerular Filt Rate 42 Chronic Kidney Disease: Estimated GFR < 60 mL/min/1.73m2 Severe Kidney Disease: Estimated GFR < 15 mL/min/1.73m2 Glucose Fasting 88 60-99 mg/dL Calcium 9.5 8.4-10.2 mg/dL Bilirubin Total 0.7 0.0-1.0 mg/dL Aspartate Amino Transferase 32 5-37 U/L Alanine Aminotransferase 10 0-40 U/L Total Protein 7.2 6.5-8.0 g/dL Albumin Level 4.3 3.5-5.0 g/dL Alkaline Phosphatase 97 39-117 U/L Lipid Panel Reviewed date:10/26/2024 12:22:46 PM Interpretation: Performing Lab:[facility], [address] [place] [phone] Notes/Report: Triglycerides 101 <150 mg/dL Desirable Triglyceride: less than 150 mg/dL Borderline High Triglyceride 150-199 mg/dL High Triglyceride: 200-499 mg/dL Very High Triglyceride: greater than or equal to 5OO mg/dL Cholesterol 179 <200 mg/dL Desirable Cholesterol: less than 200 mg/dL Borderline High Cholesterol: 200-239 mg/dL High Cholesterol: greater than 239 mg/dL LDL Cholesterol Calculated 100 <100 mg/dL Desirable LDL: less than 100 mg/dL Near Optimal/Above Optimal LDL: 110-129 mg/dL Borderline High LDL: 130-159 mg/dL High LDL: 160-189 mg/dL Very High LDL: greater than or equal to 190 mg/dL HDL Cholesterol 59 >40 mg/dL Desirable HDL: greater than 40 mg/dL Note: This HDL assay may give artificially low results in patients with liver disease. PSA,Total (Free>4and<10) Reviewed date:10/26/2024 12:07:01 PM Interpretation: Performing Lab:[facility], [address] [place] [phone] Notes/Report: PSA,Total (Free>4and<10) 0.24 0.00-4.00 ng/mL A Free PSA was not [...] (CMIA) UA ClnCatch+Micro w/rflx Cul t Reviewed date:10/26/2024 12:24:39 PM Interpretation: Performing Lab:[facility], [address] [place] [phone] Notes/Report: Urine, Clean Catch Color Urine Yellow Appearance Urine Clear PH 5.5 5.0-9.0 Glucose Urine UA >=1000 Negative mg/dL Urine Blood Negative Negative Specific [place] - Urine 1.020 1.005-1.025 Urine Protein Negative Neg-Trace mg/dL Urine Ketones Negative Negative mg/dL Nitrite Urine Negative Negative Leukocyte Esterase Urine Negative Negative RBC Urine 0-2 0-2 /HPF WBC Urine 0-5 0-5 /HPF Squamous Epithelial Cell Urine 0-2 0-2 /HPF Bacteria Urine None Seen None Seen Hyaline Casts Urine 0-2 0-2 /LPF REASON FOR VISIT FASTING LABS Encounters Encounter Location Date Provider Diagnosis Deandre Bowden MD [address] [place] [address] [place] [phone] 10/26/2024 Deandre Bowden Blood tests for rout ine general physical examination Z00.00 ; Systolic congestive heart failure, unspecified congestive heart failure chronicity I50.20 ; Pure hypercholesterolemia E78.00 ; Elevated PSA R97.20 and Monocytosis D72.821 Assessments Encounter Date Diagnosis (ICD Code) Assessment Notes Treatment Notes Treatment Clinical Notes Section Notes 10/26/2024 Blood tests for rout ine general physical examination (ICD-10 - Z00.00) 10/26/2024 Systolic congestive heart failure, unspecified congestive heart failure chronicity (ICD-10 - I50.20) 10/26/2024 Pure hypercholesterolemia (ICD-10 - E78.00) 10/26/2024 Elevated PSA (ICD-10 - R97.20) 10/26/2024 Monocytosis (ICD-10 - D72.821) Plan Of Treatment Next Appt Details Provider Name:Deandre Chu ier, 11/02/2024 10:30:00 AM, [address] [place] [address], [address] [place] [address], [phone], Progress Notes * Dante MONTANEZ KDOB:[birth year] (74 yo M)Acc No.[id number]:10/26/2024 Progress Note Patient: Dante METZGER Provider: Ryley Bowden MD :1950 A ge:74 Y S ex:Male Date:10/26/2024 Address:[address] [place], [place] [phone] Subjective: * Chief Complaints: * 1 . FASTING LABS. * Medical History: Objective: * Vitals: Assessment: * Assessment: 1. B lood tests for routine general physical examination - Z00.00 (Primary) 2 .?Systolic congestive heart failure, unspecified congestive heart failure chronicity - I50.20? 3. P ure hypercholesterolemia - E78.00 4 . E levated PSA - R97.20 5 . M onocytosis - D72.821 Plan: * Treatment: 2. S ystolic congestive heart failure, unspecified congestive heart failure chronicity L AB: Complete Blood Count Auto Diff (Collection Date & Time - 10/26/2024 10:53 AM) L AB: Comprehensive [place]. Panel Fast (Collection Date & Time - 10/26/2024 10:53 AM) L AB: Lipid Panel (Collection Date & Time - 10/26/2024 10:53 AM) L AB: PSA,Total (Free>4and<10) (Collection Date & Time - 10/26/2024 10:53 AM) L AB: UA ClnCatch+Micro w/rflx Cult (Collection Date & Time - 10/26/2024 10:53 AM) 3. P ure hypercholesterolemia L AB: Complete Blood Count Auto Diff (Collection Date & Time - 10/26/2024 10:53 AM) L AB: Comprehensive [place]. Panel Fast (Collection Date & Time - 10/26/2024 10:53 AM) L AB: Lipid Panel (Collection Date & Time - 10/26/2024 10:53 AM) L AB: PSA,Total (Free>4and<10) (Collection Date & Time - 10/26/2024 10:53 AM) L AB: UA ClnCatch+Micro w/rflx Cult (Collection Date & Time - 10/26/2024 10:53 AM) 4. E levated PSA L AB: Complete Blood Count Auto Diff (Collection Date & Time - 10/26/2024 10:53 AM) L AB: Comprehensive [place]. Panel Fast (Collection Date & Time - 10/26/2024 10:53 AM) L AB: Lipid Panel (Collection Date & Time - 10/26/2024 10:53 AM) L AB: PSA,Total (Free>4and<10) (Collection Date & Time - 10/26/2024 10:53 AM) L AB: UA ClnCatch+Micro w/rflx Cult (Collection Date & Time - 10/26/2024 10:53 AM) 5. M onocytosis L AB: Complete Blood Count Auto Diff (Collection Date & Time - 10/26/2024 10:53 AM) L AB: Comprehensive [place]. Panel Fast (Collection Date & Time - 10/26/2024 10:53 AM) L AB: Lipid Panel (Collection Date & Time - 10/26/2024 10:53 AM) L AB: PSA,Total (Free>4and<10) (Collection Date & Time - 10/26/2024 10:53 AM) L AB: UA ClnCatch+Micro w/rflx Cult (Collection Date & Time - 10/26/2024 10:53 AM) * Procedure Codes: 3 6415 VENIPUNCT, ROUTINE* * * The named appointment provid er may or may not be the originator of this progress note, and it is not deemed complete until electronically signed by the appointment provider. Sign off status: Pending * Provider: Ryley Bowden MD Date: 0 10/26/2024 Generated for Alicia lala/Isabel/Ayseitting on: 10/26/2024 02:32 PM EDT
[2024-10-26 10:55] LABS: MANUAL DIFF FLAG NO
[2024-10-26 11:31] LABS: Appearance Urine Clear; Glucose Urine UA >=1000 mg/dL (Negative); Hematocrit 44.3 % (42.0-52.0); Hemoglobin 14.2 g/dl (14.0-18.0); Imm Gran Abs Auto 0.01 X10*3/uL (0.00-0.03); Imm Gran Pct Auto 0.1 % (0.0-0.4); Lymphocytes Absolute Auto 1.7 X10*3/uL (1.2-4.9); Mean Corpuscular HGB Conc 32.1 g/dl (31.0-36.0); Mean Corpuscular Hemoglobin 28.6 pg (27.0-33.0); Mean Corpuscular Volume 89.3 fL (80.0-98.0); NRBC Abs Auto 0.000 X10*3/uL (0.0-0.012); NRBC Pct Auto 0.0 /100WBC (0.0-0.2); PH 5.5 (5.0-9.0); Platelet Count 222 X10*3/uL (160-400); Red Blood Count 4.96 X10*6/uL (4.60-5.80); Specific Gravity - Urine 1.020 (1.005-1.025); UMIC TRIGGER UACC YES; White Blood Count 7.2 X10*3/uL (4.8-10.8)
[2024-10-26 12:02] LABS: PSA,Total (Free>4and<10) 0.24 ng/mL (0.00-4.00)
[2024-10-26 12:11] LABS: Alanine Aminotransferase 10 U/L (0-40); Albumin Level 4.3 g/dL (3.5-5.0); Alkaline Phosphatase 97 U/L (39-117); Anion Gap 13 (12-20); Aspartate Amino Transferase 32 U/L (5-37); Blood Urea Nitrogen 16 mg/dL (9-16); Calcium 9.5 mg/dL (8.4-10.2); Carbon Dioxide 27 mmol/L (22-29); Chloride 108 mmol/L (96-108); Cholesterol 179 mg/dL (<200); Estimated Glomerular Filt Rate 42; HDL Cholesterol 59 mg/dL (>40); Potassium 4.5 mmol/L (3.3-5.1); Sodium 143 mmol/L (135-145); Total Protein 7.2 g/dL (6.5-8.0); Triglycerides 101 mg/dL (<150)
--- OUTSIDE RECORDS SUMMARY | 2024-10-26 14:33 | XMS_ITS | Patient Health Record ---
Author Organization Deandre Bowden MD Address [address] [place], [place] [id number] Care Team Providers Care Marbleizer Name Role Phone Deandre Bowden Primary Care Provider Allergies No Known Allergies Results Component Value Reference Range Notes Liver Panel Reviewed date:04/23/2024 12:11:23 PM Interpretation: Performing Lab:[facility], [address] [place] [phone] Notes/Report: Bilirubin Total 0.6 0.0-1.0 mg/dL Bilirubin Direct 0.2 0.0-0.5 mg/dL Aspartate Amino Transferase 32 5-37 U/L Alanine Aminotransferase 12 0-40 U/L Total Protein 7.3 6.5-8.0 g/dL Albumin Level 3.9 3.5-5.0 g/dL Alkaline Phosphatase 88 39-117 U/L Lipid Panel with Reflex Reviewed date:04/23/2024 12:18:43 PM Interpretation: Performing Lab:[facility], [address] [place] [phone] Notes/Report: Triglycerides 79 <150 mg/dL Desirable Triglyceride: [...] low results in patients with liver disease. Complete Blood Count Auto Di ff Reviewed date:10/26/2024 12:23:24 PM Interpretation: Performing Lab:[facility], [address] [place] [phone] Notes/Report: White Blood Count 7.2 4.8-10.8 X10*3/uL [...] NRBC Abs Auto 0.000 0.0-0.012 X10*3/uL Comprehensive Heth. Panel Fa st Reviewed date:10/26/2024 12:24:00 PM Interpretation: Performing Lab:[facility], [address] [place] [phone] Notes/Report: Sodium 143 135-145 mmol/L Potassium 4.5 [...] Panel Reviewed date:10/26/2024 12:22:46 PM Interpretation: Performing Lab:[facility], [address] [place] [phone] Notes/Report: Triglycerides 101 <150 mg/dL Desirable Triglyceride: [...] (Free>4and<10) Reviewed date:10/26/2024 12:07:01 PM Interpretation: Performing Lab:[address] [phone] Notes/Report: PSA,Total (Free>4and<10) 0.24 0.00-4.00 ng/mL A [...] t Reviewed date:10/26/2024 12:24:39 PM Interpretation: Performing Lab:[address] [phone] Notes/Report: Urine, Clean Catch Color Urine Yellow Appearance Urine Clear PH 5.5 5.0-9.0 Glucose Urine UA >=1000 Negative mg/dL Urine Blood Negative Negative Specific [place] - Urine 1.020 1.005-1.025 Urine Protein Negative Neg-Trace mg/dL Urine Ketones Negative Negative mg/dL Nitrite Urine Negative Negative Leukocyte Esterase Urine Negative Negative RBC Urine 0-2 0-2 /HPF WBC Urine 0-5 0-5 /HPF Squamous Epithelial Cell Urine 0-2 0-2 /HPF Bacteria Urine None Seen None Seen Hyaline Casts Urine 0-2 0-2 /LPF Hold Gold Reviewed date:04/23/2024 12:16:21 PM Interpretation: Performing Lab:[address] [phone] Notes/Report: Gus Gold See Note Specimen held untested for 24 hours; Call to request Chemistry testing. Reason For Referral No Information Medications Medication SIG (Take, Route, Frequency, Duration) [...] Once a day for 90 days Active Immunizations Vaccine Route Administration Date Status Comme nts Shingles IM Intramuscular 09/20/[address] [facility] Fluarix Quadrivalent IM Intramuscular 10/29/2013 [facility] Tetanus Unknown 12/23/2012 Administered [facility] PPSV23 (Pnemovax) Unknown 12/02/2012 Administered [facility] Prevnar 13 IM Intramuscular 04/15/2014 Administered Fluarix Quadrivalent IM Intramuscular 10/27/2014 [facility] red Fluarix Quadrivalent IM Intramuscular 10/19/2015 [facility] red Fluarix Quadrivalent Unknown 11/15/2016 Administered pt was given the vaccine at [facility] on [facility] in [place]. Influenza High Dose IM Intramuscular 11/18/2017 Administer ed PPSV23 (Pnemovax) IM Intramuscular 12/16/2017 Administered Influenza High Dose IM Intramuscular 11/06/2018 Administer ed Pt was given the vaccine at [facility] on [facility] Influenza High Dose IM Intramuscular 10/15/2019 Administer ed Covid Vaccine Unknown 04/06/2020 Administered Moderna [facility] SARS-COV-2 Moderna Unknown 05/04/2020 Administered Influenza High Dose IM Intramuscular 11/07/2020 Administer ed SARS-COV-2 Moderna Unknown 01/25/2021 Administered Influenza High Dose IM Intramuscular 10/21/2022 Administer ed Influenza High Dose IM Intramuscular 10/24/2023 Administer ed SARS-COV-2 Pfizer Unknown 11/02/2023 Administered [facility] Flu Vaccine Unknown 10/29/2013 Pending Social History Tobacco Use/Smoking Question Answer Notes [...] Problem Status W/U Status Risk Notes Problem 56184471 Monocytosis (D72.821) Active confirmed Problem Atresia and stenosis of aorta (430772578) Aortic stenosis (Q25.3) Active confirmed Problem 244372980 Systolic congest fadia heart failure, unspecified congestive heart failure chronicity (I50.20) Active confirmed Problem 19150747 Aortic valve diane nosis, unspecified etiology (I35.0) Active confirmed Problem 802414572 Pure hypercholesterolemia (E78.00) Active confirmed Problem 283666443 Elevated PSA (R97.20) Active confirme d Problem 345117347 History of pacem jennifer (Z95.0) Active confirmed Problem 092030404 Permanent atrial fibrillation (I48.21) Active confirmed Vital Signs Blood pressure diastolic 60 mm Hg 04/30/2024 nely ght is up 10 pounds since 10-31-23 Height 68 in 04/30/2024 weight is up 10 pounds since 10-31-23 Blood pressure systolic 106 mm Hg 04/30/2024 weig ht is up 10 pounds since 10-31-23 Weight 208 lbs 04/30/2024 weight is up 10 pounds since 10-31-23 BMI 31.62 kg/m2 04/30/2024 weight is up 10 pounds since 10-31-23 Encounters Encounter Location Date Provider Diagnosis Deandre Bowden MD [address] [place] [address] Drive [address] [place] [id number] 04/23/2024 Deandre Bowden Pure hypercholestero lemia E78.00 Deandre Bowden MD [address] [place] [id number] 10/26/2024 Deandre Bowden Blood tests for rout ine general physical examination Z00.00 ; Systolic congestive heart failure, unspecified congestive heart failure chronicity I50.20 ; Pure hypercholesterolemia E78.00 ; Elevated PSA R97.20 and Monocytosis D72.821 Deandre Bowden MD [address] [place] [address] [address] [place] [id number] 10/31/2023 Deandre Bowden History of pacemaker Z95.0 ; Annual physical exam Z00.00 ; Aortic valve stenosis, unspecified etiology I35.0 ; Pure hypercholesterolemia E78.00 ; Systolic congestive heart failure, unspecified congestive heart failure chronicity I50.20 ; Permanent atrial fibrillation I48.21 ; Colon cancer screening Z12.11 and Depression screening Z13.31 Deandre Bowden MD [address] [place] [address] [address] [place] [address] [id number] 04/30/2024 Deandre Bowden Aortic valve stenosi s, unspecified etiology I35.0 ; Systolic congestive heart failure, unspecified congestive heart failure chronicity I50.20 and Pure hypercholesterolemia E78.00 Deandre Bowden MD [address] [place] [address] [address] [place] [id number] 04/26/2024 Deandre Bowden Assessments Encounter Date Diagnosis (ICD Code) Assessment Notes Treatment Notes Treatment Clinical Notes Section Notes 04/23/2024 Pure hypercholesterolemia (ICD-10 - E78.00) 10/26/[address] ine general physical examination (ICD-10 - Z00.00) 10/31/2023 History of pacemaker (ICD-10 - Z95.0) doing well, follows with cardiology 10/31/2023 Annual physical exam (ICD-10 - Z00.00) labs reviewed and discussed with patient 04/30/2024 Aortic valve stenosi s, unspecified etiology (ICD-10 - I35.0) followed by cardiology 10/26/2024 Systolic congestive heart failure, unspecified congestive heart failure chronicity (ICD-10 - I50.20) 10/31/2023 Aortic valve stenosi s, unspecified etiology (ICD-10 - I35.0) at present still refusing surgery 04/30/2024 Systolic congestive heart failure, unspecified congestive heart failure chronicity (ICD-10 - I50.20) doing well with no complaints, will continue current regiment 10/26/2024 Pure hypercholesterolemia (ICD-10 - E78.00) 10/31/2023 Pure hypercholesterolemia (ICD-10 - E78.00) well controlled, at goal, will coontinue current regiment 04/30/2024 Pure hypercholesterolemia (ICD-10 - E78.00) stable, will continue current regiment 10/26/2024 Elevated PSA (ICD-10 - R97.20) 10/31/2023 Systolic congestive heart failure, unspecified congestive heart failure chronicity (ICD-10 - I50.20) Stable. Continue current regiment. 10/26/2024 Monocytosis (ICD-10 - D72.821) 10/31/2023 Permanent atrial fibrillation (ICD-10 - I48.21) seems in sinus at present, will continue current regiment 10/31/2023 Colon cancer screeni ng (ICD-10 - Z12.11) guaiac negative 10/31/2023 Depression screening (ICD-10 - Z13.31) negative screen 10/31/2023 Other Plan Of Treatment Pending Test Test Name Order Date Electrocardiogram (EKG) 08/18/2015 [facility] 10/05/2019 Next Appt Details Provider Name:Deandre Chu ier, 11/02/2024 10:30:00 AM, [address] [place] [address], [address], [place], [place], [id number], Insurance Providers Payer Name Payer Address Payer Phone Subscriber Number Group Number Insured Name Patient Relationship to Insured Coverage Start Date Coverage End Date [employer] [facility] [address] [place] [address] [phone] [id number] Dante Francois Self - patient is the insured [facility] [address] [place] [phone] [id number] Dante Francois Self - patient is the insured [employer] [address] [place] [address] [id number] Dante Francois Self - patient is the insured Medical (General) History Medical History History ICD Code congestive heart failure 2013 had a cardiac cath. jamie ar coronaries and mild to moderate aortic stenosis low fe but normal cbc and indices 2014 discussed colonoscopy 2013; 10/27/19 Positive Cologuard - refused colonosocpy. positive 2023 explained that it could be cancer and still refuses colonoscopy HX of positive Guaiac stools in 2017 R19 .5 dapifligozin is farxiga
== END 2024-10-26 10:52 | disposition home or self-care (01) ==
LOC: HO.LNP 10:51
PROVIDERS: Visit Provider Internal Medicine
DX: Z00.00 Encounter for general adult medical examination without abnormal findings (principal); Z12.5 Encounter for screening for malignant neoplasm of prostate; I50.20 Unspecified systolic (congestive) heart failure; R97.20 Elevated prostate specific antigen [PSA]; E78.00 Pure hypercholesterolemia, unspecified; D72.821 Monocytosis (symptomatic)
CPT/HCPCS: 80053; 80061; 81001; 84153; 85025